=== PATIENT | female | born 1980 | race Caucasian/White ===

== ENCOUNTER 2019-05-28 13:33 | Inpatient (IN) | payer OTHER ==
[~2019-05-28] VITALS: Ht 154.9 cm; Wt 54.4 kg
[2019-05-28 13:42] VITALS: BP 128/69
[2019-05-28 14:00] LABS: URINE BILIRUBIN NEGATIVE (Negative); URINE BLOOD NEGATIVE (Negative); URINE CLARITY CLEAR; URINE COLOR YELLOW; URINE GLUCOSE-RANDOM NEGATIVE (Negative); URINE KETONES NEGATIVE (Negative); URINE LEUKOCYTES-REFLEX NEGATIVE (Negative); URINE NITRITE-REFLEX NEGATIVE (Negative); URINE PROTEIN NEGATIVE (Negative); URINE UROBILINOGEN 0.2 E.U./dl (0.2-1.0)
[2019-05-28 14:11] LABS: ABSOLUTE LYMPHOCYTES 2.2 thou/uL (0.8-5.3); ABSOLUTE MONOCYTES 0.5 thou/uL (0.0-1.2); ABSOLUTE NEUTROPHILS 5.8 thou/uL (1.6-8.1); BASOPHILS 0.4 %; EOSINOPHILS 0.1 %; HEMATOCRIT 38.8 % (37.0-47.0); HEMOGLOBIN 13.4 gm/dL (12.0-15.0); LYMPHOCYTES 25.3 %; MCH 30.8 pg (26.0-34.0); MCHC 34.5 g/dL (28.0-37.0); MCV 89.4 fL (80.0-100.0); MONOCYTES 6.3 %; MPV 7.3 fl. (7.2-11.1); NUCLEATED RBCS 0 /100WBC; PLATELET COUNT* 370 thou/uL (150-400); POLYS 67.9 %; RBC 4.34 mil/uL (4.20-5.00); RDW-CV 14.6 % (10.5-14.5); WBC 8.6 thou/uL (4.0-11.0)
[2019-05-28 14:19] LABS: ANION GAP 9 mmol/L (7-16); BUN 9 mg/dL (7-18); CALCIUM 8.3 mg/dL (8.5-10.1); CHLORIDE 106 mmol/L (98-107); CO2 24 mmol/L (21-32); CREATININE 0.6 mg/dL (0.6-1.3); GLUCOSE 104 mg/dL (70-99); POTASSIUM 3.7 mmol/L (3.5-5.1); SODIUM 139 mmol/L (136-145)
[2019-05-28 14:28] LABS: ALBUMIN 3.3 g/dL (3.4-5.0); ALKALINE PHOSPHATASE 67 U/L (46-116); LIPASE 1135 U/L (73-393); SGOT 9 U/L (15-37); SGPT 15 U/L (30-65); TOTAL BILIRUBIN 0.2 mg/dL (<0.1-1.0); TOTAL PROTEIN 6.7 g/dL (6.4-8.2); TROPONIN-I LEVEL <0.06 ng/mL (<0.06)
[2019-05-28 15:41] LABS: AMP/METHAMP Negative (Negative); BARBITURATES Negative (Negative); BENZODIAZEPINES Negative (Negative); COCAINE Negative (Negative); METHADONE Negative (Negative); OPIATES Negative (Negative); PCP Negative (Negative); THC Negative (Negative)
--- NOTE | 2019-05-28 16:55 | EKG ---
[place] [address] ELECTROCARDIOGRAM REPORT Name: IRASEMA BARTON Room: [address] [place] [address] ADM IN .R.#: [id number] Admission: 05/28/19 Attend Phys: Camilo Chris MD Discharge: Date of : 80 Report #: [id number] THIS REPORT FOR: //name// [facility] ED Test Date: 2019-05-28 Test Time: 14:06:49 Pat Name: IRASEMA BARTON Department: Room: [facility] Gender: F Aircrewman: MEGAN : 1980 Requested By: Cindi Onofre Order Number: [id number] MD: Akin Fowler Measurements Intervals [place] Rate: 67 P: 54 TN: 149 QRS: 71 QRSD: 87 T: 42 QT: 379 QTc: 400 Interpretive Statements Sinus rhythm No previous ECG available for comparison Electronically Signed On 05-28-2019 16:55:34 CDT by Akin Fowler [email or web address] <ELECTRONICALLY SIGNED> By: Akin Fowler MD, [facility] 05/28/19 1655 1406 1406 Akin Fowler MD, FACC /EPI
[2019-05-28 17:03] LABS: CALCIUM 8.4 mg/dL (8.5-10.1); CREATININE 0.6 mg/dL (0.6-1.3); MAGNESIUM 1.8 mg/dL (1.8-2.4); POTASSIUM 4.1 mmol/L (3.5-5.1)
[2019-05-28 17:14] VITALS: BP 125/68
[2019-05-28 17:53] VITALS: BP 128/64
--- NOTE | 2019-05-28 18:02 | NUR ---
ASSESSMENT COMPLETE. PT ADMITTED TO UNIT AT 1710. PT IS ALERT AND ORIENTED X4. PT GIVEN PRN PAIN MEDICATION FOR ABDOMINAL PAIN. PT IS NPO EXCEPT MEDS. PT HAS IV FLUIDS INFUSING. UP STANDBY ASSIST. PT IS RESTING WITH NO OTHER CONCERNS. SEE ASSESSMENT AND VITALS FOR OTHER DETAILS. CALL LIGHT WITHIN REACH, WILL CONTINUE PLAN OF CARE
[2019-05-28 20:45] VITALS: BP 122/70
--- NOTE | 2019-05-29 04:18 | NUR ---
ASSUMED CARE OF PT 05/28/19 APPROX 1930, PT A&OX4 THROUGHOUT SHIFT, ASSESSMENTS AND HOURLY ROUNDINGS COMPLETED, PAIN MEDS REQUESTED BY PT AND GIVEN ORDERED APPROX Q2HR, MAGNESIUM POTOCOL FOLLOWED AND MEDS GIVEN PER PROTOCOL. WILL CONTINUE TO MONITOR.
[2019-05-29 05:07] LABS: HEMATOCRIT 34.7 % (37.0-47.0); HEMOGLOBIN 11.9 gm/dL (12.0-15.0); MCH 31.2 pg (26.0-34.0); MCHC 34.4 g/dL (28.0-37.0); MCV 90.6 fL (80.0-100.0); MPV 7.7 fl. (7.2-11.1); RBC 3.83 mil/uL (4.20-5.00); RDW-CV 13.9 % (10.5-14.5); WBC 7.8 thou/uL (4.0-11.0)
[2019-05-29 05:29] LABS: ALBUMIN 2.7 g/dL (3.4-5.0); CREATININE 0.5 mg/dL (0.6-1.3); MAGNESIUM 1.6 mg/dL (1.8-2.4); POTASSIUM 4.1 mmol/L (3.5-5.1); TOTAL BILIRUBIN 0.3 mg/dL (<0.1-1.0); TOTAL PROTEIN 5.6 g/dL (6.4-8.2)
[2019-05-29 08:18] VITALS: BP 107/42
[2019-05-29 12:00] VITALS: BP 113/51
--- NOTE | 2019-05-29 13:03 | NUR ---
Nutrition: Pt admitted with "acute pancreatitis, possibly obstructive." Physician indicated Mild PCM - defer. Volume depletion. Wt: 119#. Lipase 1135, albumin 2.7. NPO currently. Pt was sound asleep at time of visit, wanting to remain sleeping. No nutrition interventions needed at this time. GOALS: advance diet as toelrated to goal of low fat, wt maintenance, pain control. Consider Mild risk at this time.
[2019-05-29 16:00] VITALS: BP 108/55
--- NOTE | 2019-05-29 18:56 | NUR ---
Patient awake in bed. All safety measures maintained. Patient ambulating up ad rikki throughout shift. Patient denies further needs at this time.
[2019-05-29 22:20] VITALS: BP 110/49
[2019-05-30 04:45] LABS: ALBUMIN 2.9 g/dL (3.4-5.0); CREATININE 0.6 mg/dL (0.6-1.3); MAGNESIUM 1.8 mg/dL (1.8-2.4); TOTAL BILIRUBIN 0.5 mg/dL (<0.1-1.0)
--- NOTE | 2019-05-30 05:42 | NUR ---
PT RESTING/SLEEPING QUIETLY THROUGH THIS SHIFT. PAIN MANAGED BY FENTANYL AND TORADOL. ELECTROLYE REPLACEMENT IN PROGRESS. NPO EXCEPT MEDS. IV FLUID RUNNING ORDERED. UP AD ALEC. WILL CONTINUE TO MONITOR.
[2019-05-30 08:15] VITALS: BP 112/59; BP 141/84
[2019-05-30 15:00] VITALS: BP 125/58
--- NOTE | 2019-05-30 19:17 | CON ---
[address] [address] CONSULTATION Name: IRASEMA BARTON Room: [address] IN .R.#: [id number] Admission: 05/28/19 Attend Phys: Camilo Chris MD Discharge: Date of : 80 Report #: [id number] THIS REPORT FOR: //name// CC: SANIYA physician/PCP Camilo Chris DATE OF SERVICE: 05/29/2019 HISTORY OF PRESENT ILLNESS: This is a pleasant 39-year-old female with no significant past medical history, who is presenting for evaluation of severe abdominal pain. The patient reports the pain began about 2 days back. The pain is sharp, located in the epigastrium, is localized and nonradiating. The patient reports it is associated with nausea, but no vomiting. The patient denies similar episodes of pain in the past. She denies any other symptoms such as fevers, chills, hematemesis, hematochezia or weight loss. The patient reports the pain is worse with food and is only relieved by pain medication. PAST MEDICAL HISTORY: Nonsignificant. PAST SURGICAL HISTORY: Nonsignificant. SOCIAL HISTORY: The patient reports smoking about half pack per day, takes alcohol very occasionally once every few months. Denies any recreational drug use. FAMILY HISTORY: There is no family history of colorectal cancer or [place]-related neoplasia. REVIEW OF SYSTEMS: A comprehensive 10-point review of systems is negative except what was mentioned in the HPI. PHYSICAL EXAMINATION: VITAL SIGNS: Temperature 36.7, pulse rate 62, blood pressure 107/42 and respirations 15. GENERAL: The patient is alert, awake and oriented x 3. HEENT: Pupils are equal, round and reactive to light and accommodation. Mucous membranes are moist. There is no congestion. LUNGS: Clear to auscultation bilaterally. CARDIOVASCULAR: Rate and rhythm regular, S1, S2 present. ABDOMEN: Soft. Tenderness is located in the epigastric region. No guarding or rigidity. EXTREMITIES: Warm, well perfused. There is no edema. SKIN: Warm and dry. LABORATORY DATA: Hemoglobin 11.7, hematocrit 34.7, platelet count 321 and WBC count 7.8. Sodium 143, potassium 4.1, chloride 110, bicarbonate 22, BUN 10, [place] [address] CONSULTATION Name: IRASEMA BARTON Room: [address]#: [id number] Admission: 05/28/19 Attend Phys: Camilo Chris MD Discharge: Date of : 80 Report #: [id number] creatinine 0.5, total bilirubin 0.3, AST 12, ALT 20 and alkaline phosphatase 67. Lipase on presentation 1135. IMAGING: CT of abdomen and pelvis with contrast, pancreatic mass 3.7 x 2.9 x 3.4 cm, located in the head of uncinate process, suspicious for pancreatic adenocarcinoma. No definite CT evidence of metastatic disease to the abdomen or pelvis; 2 right sacral indeterminate, nonaggressive bone lesions; bilateral ovarian cysts; prior hysterectomy; small volume of pelvic fluid within physiologic limits. ASSESSMENT AND PLAN: Pleasant 39-year-old female with no significant past medical history, presenting for evaluation of her abdominal pain. The patient was found to have elevated lipase consistent with mild acute pancreatitis. The patient also noted to have a lesion in the uncinate process of the pancreas. Continue conservative management for acute pancreatitis. I would recommend getting an EUS in 1-2 weeks to follow up on the pancreatic mass/lesion. Check CA 19-9 level tomorrow. Further recommendations will depend on the patient's clinical course. Thank you for this consultation. <ELECTRONICALLY SIGNED> By: Tony Gamboa MD 05/30/191916 40 51Tony Gamboa MD /nt
--- NOTE | 2019-05-30 19:31 | NUR ---
4638 GI PHYSICIAN CONTACTED REGARDING PATIENT'S DIET ADVANCEMENT REQUEST. NEW ORDER RECEIVED. 193 PATIENT AWAKE IN BED. ALL SAFETY MEASURES MAINTAINED. PATIENT TOLERATING DIET WELL.
[2019-05-30 22:48] VITALS: BP 134/67
[2019-05-31 03:54] LABS: ABSOLUTE BASOPHILS 0.1 thou/uL (0.0-0.2); ABSOLUTE LYMPHOCYTES 1.6 thou/uL (0.8-5.3); ABSOLUTE MONOCYTES 0.6 thou/uL (0.0-1.2); ABSOLUTE NEUTROPHILS 5.9 thou/uL (1.6-8.1); BASOPHILS 0.7 %; HEMATOCRIT 34.5 % (37.0-47.0); HEMOGLOBIN 11.9 gm/dL (12.0-15.0); LYMPHOCYTES 19.3 %; MCH 30.9 pg (26.0-34.0); MCHC 34.5 g/dL (28.0-37.0); MCV 89.7 fL (80.0-100.0); MONOCYTES 7.1 %; NUCLEATED RBCS 0 /100WBC; PLATELET COUNT* 325 thou/uL (150-400); POLYS 72.9 %; RBC 3.85 mil/uL (4.20-5.00); RDW-CV 13.7 % (10.5-14.5); WBC 8.1 thou/uL (4.0-11.0)
[2019-05-31 04:02] LABS: ALBUMIN 2.7 g/dL (3.4-5.0); CALCIUM 8.6 mg/dL (8.5-10.1); CREATININE 0.6 mg/dL (0.6-1.3); POTASSIUM 3.5 mmol/L (3.5-5.1); TOTAL BILIRUBIN 0.2 mg/dL (<0.1-1.0); TOTAL PROTEIN 5.5 g/dL (6.4-8.2)
--- NOTE | 2019-05-31 06:57 | NUR ---
PATIENT SLEPT WELL DURING THIS SHIFT. PT UP AD ALEC TO BATHROOM. PT WITH FLUIDS INFUSING PER DR ORDER. PT REQUESTED TYLENOL AND OXY IR 5MG PO Q4H FOR ABDOMINAL PAIN. PT RETURNBED TO SLEEP AFTERWARDS. FREQUENTLY USED ITEMS AND CALL LIGHT WITHIN REACH. SIDERAILS UPX2. WILL CONTINUE TO MONITOR.
[2019-05-31] MEDS ORDERED: OXYCODONE HCL 55 MG PO (10:00)
[2019-05-31 10:01] VITALS: BP 134/67
[2019-05-31 12:12] VITALS: BP 134/67
== END 2019-05-31 11:50 | disposition home or self-care (01) | DRG 439 ==
LOC: M.ERS 13:33 → M.3W 16:01 → M.TBA-ER 16:01 → M.3W 17:07
PROVIDERS: Internal Medicine; Nurse Practitioner Family; ADMIT Internal Medicine
DX: K85.90 Acute pancreatitis without necrosis or infection, unspecified (principal); E44.1 Mild protein-calorie malnutrition; F17.210 Nicotine dependence, cigarettes, uncomplicated; E86.9 Volume depletion, unspecified; D49.0 Neoplasm of unspecified behavior of digestive system; Z23 Encounter for immunization; Z90.710 Acquired absence of both cervix and uterus; Z88.1 Allergy status to other antibiotic agents; Z88.0 Allergy status to penicillin; Z88.2 Allergy status to sulfonamides; Z68.22 Body mass index [BMI] 22.0-22.9, adult; Z79.899 Other long term (current) drug therapy

== ENCOUNTER 2019-07-18 18:54 | Inpatient (IN) | payer OTHER ==
[~2019-07-18] VITALS: Ht 154.9 cm; Wt 50.3 kg
[~2019-07-18 18:54] MED LIST: OXYCODONE HCL15 MG PO
[2019-07-18 19:00] VITALS: BP 117/67
[2019-07-18] MEDS ORDERED: MORPHINE SULFAT15 M3 PO (19:08)
[2019-07-18] MEDS ORDERED: MS CONTIN60 MG PO (19:09)
[2019-07-18] MEDS ORDERED: NEURONTIN 300300 M1 PO (19:09)
[2019-07-18] MEDS ORDERED: ZOFRAN8 MG PO (19:10)
[2019-07-18 19:54] LABS: ABSOLUTE LYMPHOCYTES 1.1 thou/uL (0.8-5.3); ABSOLUTE MONOCYTES 0.2 thou/uL (0.0-1.2); ABSOLUTE NEUTROPHILS 2.7 thou/uL (1.6-8.1); BASOPHILS 1.1 %; EOSINOPHILS 0.4 %; HEMOGLOBIN 12.3 gm/dL (12.0-15.0); LYMPHOCYTES 26.1 %; MCHC 35.2 g/dL (28.0-37.0); MONOCYTES 5.7 %; NUCLEATED RBCS 0 /100WBC; PLATELET COUNT* 267 thou/uL (150-400); POLYS 66.7 %; RBC 3.98 mil/uL (4.20-5.00); RDW-CV 13.5 % (10.5-14.5); WBC 4.1 thou/uL (4.0-11.0)
[2019-07-18 20:02] LABS: CALCIUM 8.4 mg/dL (8.5-10.1); CREATININE 0.6 mg/dL (0.6-1.3); POTASSIUM 3.4 mmol/L (3.5-5.1)
[2019-07-18 20:07] LABS: TOTAL BILIRUBIN 0.8 mg/dL (<0.1-1.0); TOTAL PROTEIN 6.7 g/dL (6.4-8.2)
[2019-07-18 22:26] LABS: URINE BLOOD NEGATIVE (Negative); URINE CLARITY CLEAR; URINE COLOR YELLOW; URINE GLUCOSE-RANDOM NEGATIVE (Negative); URINE KETONES 1+ (Negative); URINE LEUKOCYTES-REFLEX NEGATIVE (Negative); URINE NITRITE-REFLEX NEGATIVE (Negative); URINE PROTEIN TRACE (Negative)
[2019-07-18 22:33] LABS: AMP/METHAMP Negative (Negative); BARBITURATES Negative (Negative); BENZODIAZEPINES Negative (Negative); COCAINE Negative (Negative); METHADONE Negative (Negative); OPIATES POSITIVE (Negative); PCP Negative (Negative); THC Negative (Negative)
[2019-07-18 22:34] LABS: URINE BILIRUBIN 1+ (Negative)
[2019-07-18 22:35] LABS: ICTOTEST (BILI CONFIRMATORY) Negative (Negative)
[2019-07-19 00:25] VITALS: BP 108/62
--- NOTE | 2019-07-19 04:12 | NUR ---
PT TO FLOOR APPROX 0040, ASSESSMENT COMPLETED CHARTED. SEE MAR. SEE CHARTING. HOURLY ROUNDING FOR SAFETY.
[2019-07-19 07:45] VITALS: BP 120/69
--- NOTE | 2019-07-19 18:49 | NUR ---
PATIENT RESTING IN BED. PATIENT HAS SLEPT MOST OF THE DAY. PATIENT HAD COMPAZINE X 1 FOR NAUSEA. PATIENT TOLERATING SMALL AMOUNTS OF CLEAR LIQUIDS. CALL LIGHT WITHIN REACH. WILL CONTINUE TO MONITOR
[2019-07-19 20:05] VITALS: BP 122/72
[2019-07-20 04:59] LABS: HEMATOCRIT 30.1 % (37.0-47.0); HEMOGLOBIN 10.4 gm/dL (12.0-15.0); MCH 30.7 pg (26.0-34.0); MCHC 34.4 g/dL (28.0-37.0); MCV 89.1 fL (80.0-100.0); MPV 8.9 fl. (7.2-11.1); RBC 3.38 mil/uL (4.20-5.00); RDW-CV 13.2 % (10.5-14.5); WBC 4.5 thou/uL (4.0-11.0)
[2019-07-20 05:10] LABS: CALCIUM 7.7 mg/dL (8.5-10.1); CREATININE 0.5 mg/dL (0.6-1.3); POTASSIUM 3.1 mmol/L (3.5-5.1)
--- NOTE | 2019-07-20 05:32 | NUR ---
PT SLEPT WELL OVERNIGHT. CO NAUSEA, MEDS GIVEN X2, NO EMESIS NOTED. UP AD ALEC TO BR TO VOID. RCHEST PAC IVF INFUSING PER PUMP. PO PAIN MEDS GIVEN WITH GOOD RELIEF FOR ABD PAIN. TOLERATING CLEARS WITHOUT EMESIS. AM LABS DRAWN. SENNA GIVEN AT HS ORDERED. NO REPORTS OF BM THIS SHIFT.ABLE TO USE CALL LITE AND MAKE NEEDS KNOWN.
[2019-07-20 08:15] VITALS: BP 122/75
[2019-07-20 16:30] VITALS: BP 125/72
--- NOTE | 2019-07-20 18:04 | NUR ---
PT A&OX4 VSS. PT UP AD ALEC, GAIT STEADY. NS @ 100ML RUNNING TO PORT IN R CHEST. LINR FLUSHES AND DRAWS APPROPRIATELY. PT DIET ADVANCED TO SOFT FIBER PER PHYSICIAN. PT REPORTS DECREASED APPETITE, BUT REQUESTS APPLE JUICE THROUGHOUT SHIFT. NO C/O N/V. LAB RE-DRAW ORDERED TO F/U K+ ADMINISTRATION. C/O HEARTBURN THIS AFTERNOON, PO FAMOTIDINE ORDERED PER DR PAYAN. PT RESTS IN BED W/ LIGHT OFF FOR REST/COMFORT. CALL LIGHT IN REACH. WILL CONTINUE TO MONITOR.
[2019-07-20 19:03] LABS: CALCIUM 7.3 mg/dL (8.5-10.1); CREATININE 0.5 mg/dL (0.6-1.3); POTASSIUM 3.4 mmol/L (3.5-5.1)
[2019-07-20 20:00] VITALS: BP 115/54
[2019-07-21 07:30] VITALS: BP 124/57
[2019-07-21] MEDS ORDERED: PEPCID20 MG PO (16:37)
[2019-07-21] MEDS ORDERED: COMPAZINE5 M1 PO (16:37)
[2019-07-21] MEDS ORDERED: ZOFRAN8 MG PO (16:37)
[2019-07-21 17:11] VITALS: BP 124/57
--- NOTE | 2019-07-21 17:50 | NUR ---
PT PORT HEPARIN LOCKED PER PROTOCOL AND DEACCESSED AT THIS TIME. PT AGREEABLE TO DISCHARGE AT THIS TIME. PT TOLERATING DIET AND HAS REDUCED N/V AND PAIN IS BETTER MANAGED, BUT IT IS CONTROLLED WITH ORAL PAIN MEDICATIONS AND ORAL ANTI-EMETICS. PT HAS NO CONCERNS NOTED AT TIME OF DISCHARGE AND STATES SHE HAS A FOLLOW UP WITH DR HICKEY THIS WEEK. WILL CONTINUE TO MONITOR AND ASSESS
== END 2019-07-21 18:45 | disposition home or self-care (01) | DRG 392 ==
LOC: M.ERS 18:54 → M.TBA-ER 22:14 → M.ERS 22:14 → M.TBA-ER 22:35 → M.ORTHSURG 22:35 → M.TBA-ER 07-19 00:04 → M.ORTHSURG 07-19 00:48
PROVIDERS: Emergency Medicine; Family Medicine; ADMIT Internal Medicine
DX: R11.2 Nausea with vomiting, unspecified (principal); C25.9 Malignant neoplasm of pancreas, unspecified; E44.0 Moderate protein-calorie malnutrition; T45.1X5A Adverse effect of antineoplastic and immunosuppressive drugs, initial encounter; E86.0 Dehydration; E87.6 Hypokalemia; Y92.89 Other specified places as the place of occurrence of the external cause; Z90.710 Acquired absence of both cervix and uterus; Z88.1 Allergy status to other antibiotic agents; Z88.0 Allergy status to penicillin; Z88.2 Allergy status to sulfonamides; Z88.8 Allergy status to other drugs, medicaments and biological substances; Z79.899 Other long term (current) drug therapy

== ENCOUNTER 2019-08-07 13:29 | Inpatient (IN) | payer OTHER ==
[~2019-08-07] VITALS: Ht 154.9 cm; Wt 50.5 kg
[~2019-08-07 13:29] MED LIST changes: +COMPAZINE5 M1 PO; +MORPHINE SULFAT15 M3 PO; +MS CONTIN60 MG PO; +NEURONTIN 300300 M1 PO; +PEPCID20 MG PO; +ZOFRAN8 MG PO
[2019-08-07 14:00] VITALS: BP 118/79
[2019-08-07 15:57] LABS: CALCIUM 8.7 mg/dL (8.5-10.1); CREATININE 0.6 mg/dL (0.6-1.3)
[2019-08-07 16:01] LABS: ALBUMIN 2.8 g/dL (3.4-5.0); TOTAL BILIRUBIN 0.4 mg/dL (<0.1-1.0); TOTAL PROTEIN 6.3 g/dL (6.4-8.2)
[2019-08-07 16:14] LABS: URINE BILIRUBIN 1+ (Negative); URINE BLOOD NEGATIVE (Negative); URINE CLARITY CLEAR; URINE COLOR YELLOW; URINE GLUCOSE-RANDOM NEGATIVE (Negative); URINE KETONES NEGATIVE (Negative); URINE LEUKOCYTES-REFLEX NEGATIVE (Negative); URINE NITRITE-REFLEX NEGATIVE (Negative); URINE PROTEIN TRACE (Negative); URINE SPECIFIC GRAVITY 1.025 (1.005-1.030); URINE UROBILINOGEN 0.2 E.U./dl (0.2-1.0)
[2019-08-07 16:15] LABS: ICTOTEST (BILI CONFIRMATORY) Negative (Negative)
[2019-08-07 16:22] LABS: AMP/METHAMP Negative (Negative); BARBITURATES Negative (Negative); BENZODIAZEPINES Negative (Negative); COCAINE Negative (Negative); METHADONE Negative (Negative); OPIATES POSITIVE (Negative); PCP Negative (Negative); THC Negative (Negative)
[2019-08-07 16:47] VITALS: BP 109/68
[2019-08-07 16:49] LABS: ABSOLUTE LYMPHOCYTES 1.3 thou/uL (0.8-5.3); ABSOLUTE MONOCYTES 0.6 thou/uL (0.0-1.2); ABSOLUTE NEUTROPHILS 2.7 thou/uL (1.6-8.1); BASOPHILS 0.4 %; HEMATOCRIT 32.6 % (37.0-47.0); HEMOGLOBIN 11.5 gm/dL (12.0-15.0); LYMPHOCYTES 28.2 %; MCH 31.2 pg (26.0-34.0); MCHC 35.3 g/dL (28.0-37.0); MCV 88.4 fL (80.0-100.0); MONOCYTES 12.1 %; MPV 8.1 fl. (7.2-11.1); NUCLEATED RBCS 0 /100WBC; PLATELET COUNT* 227 thou/uL (150-400); POLYS 59.3 %; RBC 3.69 mil/uL (4.20-5.00); RDW-CV 13.7 % (10.5-14.5); WBC 4.6 thou/uL (4.0-11.0)
--- NOTE | 2019-08-07 17:49 | NUR ---
PT ARRIVED DIRECT ADMIT FROM DOCTORS OFFICE.PT IS A/O X4,VSS,SHAMPOOER IN PLACE.PT MADE NPO STATUS FOR STAT CT OF ABD.PT STARTED ON COVERING AND LINING SUPERVISOR PUMP PER ORDERS TO MANAGE PAIN.N/V MANAGED WITH IV MEDICATIONS.UA SENT.PT INFORMED OF PLAN OF CARE AND COMMUNICATES UNDERSTANDING.HOURLY ROUNDING COMPLETED FOR PT SAFETY.CALL LIGHT AND FALL PRECAUTIONS IN PLACE.FAMILY AT BEDSIDE.WILL CONTINUE TO MONITOR FOR DURATION OF SHIFT.
[2019-08-07 20:00] VITALS: BP 120/88
[2019-08-08] VITALS: BP 121/79
[2019-08-08 04:00] VITALS: BP 115/79
--- NOTE | 2019-08-08 05:53 | NUR ---
PATIENT SLEPT PART OF THE NIGHT. IV FLUIDS CONTINUE TO INFUSE ORDERED. IV POTASSIUM AND MAG WERE REPLACED PER PROTOCOL. PATIENT HAS HAD SEVERAL LIQUID LOOSE STOOLS THIS SHIFT. PATIENT CONTINUES TO HAVE NAUSEA AND VOMITING. NAUSEA MEDS WERE GIVEN TWICE. PATIENT HAS A FENTANYL SENIOR ANALYST DEVELOPER PUMP. WILL CONTINUE TO MONITOR.
[2019-08-08 06:10] LABS: ABSOLUTE MONOCYTES 0.7 thou/uL (0.0-1.2); ABSOLUTE NEUTROPHILS 4.7 thou/uL (1.6-8.1); BASOPHILS 0.2 %; HEMATOCRIT 33.3 % (37.0-47.0); HEMOGLOBIN 11.7 gm/dL (12.0-15.0); LYMPHOCYTES 16.4 %; MCH 30.8 pg (26.0-34.0); MCHC 35.1 g/dL (28.0-37.0); MCV 87.8 fL (80.0-100.0); MONOCYTES 10.2 %; MPV 7.4 fl. (7.2-11.1); NUCLEATED RBCS 0 /100WBC; PLATELET COUNT* 261 thou/uL (150-400); POLYS 73.2 %; RBC 3.79 mil/uL (4.20-5.00); RDW-CV 13.6 % (10.5-14.5); WBC 6.4 thou/uL (4.0-11.0)
[2019-08-08 07:41] VITALS: BP 103/47
--- NOTE | 2019-08-08 08:25 | NUR ---
ASSUMED CARE OF PT THIS AM AROUND 0715- MALT SPECIFICATIONS CONTROL ASSISTANT IN PLACE ORDERED, TRACING SR/SB- UPON ASSESSMENT PT NOTED TO BE RESTING IN BED- PT A&O X4- CONTINENT VS INCONTINENT OF B/B- SBA WITH TRANSFERS FOR SAFETY- LCTA, DIMINISHED IN BASES, RESP EVEN AND UN-LABORED- VSS, O2 SAT 99% ON RA- ABD SOFT/FLAT/NON-TENDER, BS X4 QUADS- PT NOTED TO BE HAVING DIARRHEA THIS AM, SOME INCONTINENT EPISODES- RIGT CHEST PORT NOTED INTACT, IVF INFUSSING PRESCIBED- COTA PUMP IN PLACE DIRECTED, NO USE NOTED THIS AM PER PT- NPO STATUS IN PLACE INDICATED- PT DENIES ANY C/O PAIN- CALL LIGHT AND PERSONAL BELONGINGS WITH IN REACH- PT MAKES NEEDS KNOWN- ALL NEEDS MET AT THIS TIME-TATIANA
[2019-08-08 09:57] LABS: ALBUMIN 3.1 g/dL (3.4-5.0); CALCIUM 9.2 mg/dL (8.5-10.1); CREATININE 0.6 mg/dL (0.6-1.3); MAGNESIUM 2.5 mg/dL (1.8-2.4); TOTAL BILIRUBIN 0.3 mg/dL (<0.1-1.0); TOTAL PROTEIN 6.6 g/dL (6.4-8.2)
[2019-08-08 10:16] LABS: POTASSIUM 2.8 mmol/L (3.5-5.1)
[2019-08-08 10:41] VITALS: BP 102/47
--- NOTE | 2019-08-08 14:46 | 2DMMODE ---
[place] [address] 2 D/M-MODE ECHOCARDIOGRAM Name: IRASEMA BARTON Room: [address] IN [facility]#: [id number] Admission: 08/07/19 Attend Phys: Rory Dias MD Discharge: Date of : 80 Date of Service: 08/08/19 1445 Report #: [id number] THIS REPORT FOR: //name// APPROVED REPORT Study performed: 08/08/2019 10:39:59 EXAM: Comprehensive 2D, Doppler, and color-flow Echocardiogram Patient Location: In-Patient Room #: [facility] Status: routine BSA: 1.43 HR: 50 bpm BP: 103/47 mmHg Rhythm: NSR Other Information Study Quality: Good Indications Bradycardia 2D Dimensions IVSd: 8.59 (7-11mm) LVOT Diam: 20.27 (18-24mm) LVDd: 41.44 mm PWd: 8.68 (7-11mm) LVDs: 20.88 (25-40mm) Aortic Root: 29.64 mm Volumes Left Atrial Volume (Systole) LA ESV Index: 23.70 mL/m2 Aortic Valve AoV Peak Gage.: 1.31 m/s AO Peak Gr.: 6.84 mmHg LVOT Max P.47 mmHg AO Mean Gr.: 3.59 mmHg LVOT Mean P.92 mmHg LVOT Max V: 1.06 m/s AO V2 VTI: 23.52 cm LVOT Mean V: 0.63 m/s ALVIN (VTI): 2.83 cm2 LVOT V1 VTI: 20.61 cm Mitral Valve E/A Ratio: 1.77 MV Decel. Time: 310.79 ms MV E Max Gage.: 0.67 m/[place] [address] 2 D/M-MODE ECHOCARDIOGRAM Name: IRASEMA BARTON Room: [address] IN [facility].#: [id number] Admission: 08/07/19 Attend Phys: Rory Dias MD Discharge: Date of : 80 Date of Service: 08/08/19 1445 Report #: [id number] MV PHT: 90.13 ms MVA (PHT): 2.44 cm2 TDI E/Lateral E': 4.19 E/Medial E': 4.79 Medial E' Gage.: 0.14 m/s Lateral E' Gage.: 0.16 m/s Pulmonary Valve PV Peak Gage.: 0.89 m/s PV Peak Gr.: 3.18 mmHg Left Ventricle The left ventricle is normal size. There is normal LV segmental wall motion. There is normal left ventricular wall thickness. Left ventricular systolic function is normal. The left ventricular ejection fraction is within the normal range. LVEF is 60-65%. The left ventricular diastolic function is normal. Right Ventricle The right ventricle is normal size. The right ventricular systolic function is normal. Atria The left atrium size is normal. The right atrium size is normal. Aortic Valve The aortic valve is normal in structure. No aortic regurgitation is present. There is no aortic valvular stenosis. Mitral Valve The mitral valve is normal in structure. There is no mitral valve regurgitation noted. No evidence of mitral valve stenosis. Tricuspid Valve The tricuspid valve is normal in structure. Unable to assess PA pressure. Trace tricuspid regurgitation. Pulmonic Valve The pulmonary valve is normal in structure. There is no pulmonic valvular regurgitation. Great Vessels The aortic root is normal in size. IVC is normal in size and collapses >50% [place] [address] 2 D/M-MODE ECHOCARDIOGRAM Name: IRASEMA BARTON Room: [address] IN [facility]#: [id number] Admission: 08/07/19 Attend Phys: Rory Dias MD Discharge: Date of : 80 Date of Service: 08/08/19 1445 Report #: [id number] Pericardium There is no pericardial effusion. <Conclusion> The left ventricle is normal size. There is normal left ventricular wall thickness. Left ventricular systolic function is normal. The left ventricular ejection fraction is within the normal range. LVEF is 60-65%. The left ventricular diastolic function is normal. The right ventricle is normal size. The left atrium size is normal. The aortic valve is normal in structure. The mitral valve is normal in structure. The tricuspid valve is normal in structure. IVC is normal in size and collapses >50% with inspiration. There is no pericardial effusion. There is normal LV segmental wall motion. <ELECTRONICALLY SIGNED> By: Walter Ibrahim MD, [facility] 08/08/19 1445 1445 1445 Walter Ibrahim MD, FACC /INF
--- NOTE | 2019-08-08 14:49 | NUR ---
Pt is A&O. Resides at home with her . Independent. Very nauseous with vomitting today. On palliative chemo for pancreatic CA. Following.
[2019-08-08 16:23] VITALS: BP 109/53
[2019-08-08 20:00] VITALS: BP 104/54
[2019-08-09] VITALS: BP 100/51
--- NOTE | 2019-08-09 03:25 | NUR ---
ASSUMED PT CARE AT APPROX 1930. PT IS AWAKE AND ORIENTED X4. VSS ON ROOM AIR. SHIPBOARD INTELLIGENCE ANALYST IN PLACE TRACING SB-PT REMAINED ASYMPTOMATIC. PT IS STILL NAUSEOUS-MEDS GIVEN PER MAR WITH PARTIAL RELIEF. PT IS ABLE TO SLEEP MOST OF THE NIGHT, NO DIARRHEIC EPISODES THIS SHIFT. POTASSIUM REPLACEMENT IN PROGRESS. FALL PRECAUTIONS IN PLACE. CALL LIGHT WITHIN REACH. HOURLY ROUNDING DONE FOR PT SAFETY.
[2019-08-09 04:00] VITALS: BP 116/57
[2019-08-09 04:36] LABS: HEMATOCRIT 31.3 % (37.0-47.0); HEMOGLOBIN 10.7 gm/dL (12.0-15.0); MCH 30.7 pg (26.0-34.0); MCHC 34.3 g/dL (28.0-37.0); MCV 89.7 fL (80.0-100.0); MPV 7.5 fl. (7.2-11.1); RBC 3.49 mil/uL (4.20-5.00); RDW-CV 13.3 % (10.5-14.5); WBC 8.4 thou/uL (4.0-11.0)
[2019-08-09 04:52] LABS: ALBUMIN 2.9 g/dL (3.4-5.0); CALCIUM 8.1 mg/dL (8.5-10.1); CREATININE 0.6 mg/dL (0.6-1.3); MAGNESIUM 2.4 mg/dL (1.8-2.4); POTASSIUM 3.2 mmol/L (3.5-5.1); TOTAL BILIRUBIN 0.3 mg/dL (<0.1-1.0); TOTAL PROTEIN 5.9 g/dL (6.4-8.2)
[2019-08-09 08:00] VITALS: BP 125/72
--- NOTE | 2019-08-09 08:45 | CON ---
[address] [address] CONSULTATION Name: IRASEMA BARTON Room: [address] IN M.R.#: [id number] Admission: 08/07/19 Attend Phys: Rory Dias MD Discharge: Date of : 80 Report #: [id number] THIS REPORT FOR: //name// CC: SANIYA physician/PCP Rory Dias CARDIOLOGY CONSULT INDICATIONS: Sinus bradycardia. HISTORY OF PRESENT ILLNESS: The patient is a 39-year-old white female who has metastatic pancreatic cancer for which she is receiving palliative care. She was admitted to the hospital with abdominal pain, nausea, vomiting, and diarrhea. She reports inadequate pain control at home. Since being hospitalized, she has continued to have significant discomfort as well as nausea. On telemetry monitoring, the patient was noted to be in sinus rhythm and sinus bradycardia. Hemodynamically, she remained stable. Heart rates have been above 50 consistently. She has no prior cardiac history or issues. There is no significant family history of heart problems with the exception of bradycardia. PAST MEDICAL HISTORY: 1. Metastatic pancreatic cancer. 2. Hysterectomy for uterine fibroids. 3. Port placement for chemotherapy treatment. FAMILY HISTORY: Noncontributory. SOCIAL HISTORY: The patient smokes tobacco daily approximately half a pack. She does not drink alcohol. CURRENT MEDICATIONS: MS Contin 15 mg p.o. b.i.d., Reglan 5 mg every 6 hours IV p.r.n., morphine sulfate 4 mg IV every 2 hours p.r.n., scopolamine patch every 72 hours, Lovenox 40 mg subcutaneously at bedtime, and nicotine patch 7 mg daily. PHYSICAL EXAMINATION: VITAL SIGNS: Stable, blood pressure 102/47, pulse 50 and regular. GENERAL: This is a thin, pleasant young lady who does not appear to be in distress. HEENT: Head is normocephalic and atraumatic. Extraocular muscles intact. Mucous membranes moist. Dentition poor. NECK: No jugular venous distention. There are no carotid bruits. CHEST: Reveals clear lung natarajan. CARDIOVASCULAR: Reveals a bradycardic rate with a regular rhythm. There is normal S1 and S2. I do not appreciate gallop or murmur. ABDOMEN: Reveals normal bowel sounds. The abdomen [place] [address] CONSULTATION Name: IRASEMA BARTON Room: [address] IN [facility].#: [id number] Admission: 08/07/19 Attend Phys: Rory Dias MD Discharge: Date of : 80 Report #: [id number] EXTREMITIES: Shows no edema. SKIN: Dry. IMPRESSION AND RECOMMENDATIONS: 1. Bradycardia, possibly being contributed to slightly by some of her medications including Reglan and MS Contin. I would not make any adjustments to her medications at this time as she is tolerating this bradycardia without significant hemodynamic compromise. We would follow clinically. 2. Metastatic pancreatic cancer, on palliative care. 3. Intractable nausea and vomiting. Continue Reglan and Zofran as needed. The patient also reported reasonable relief at home with Compazine, which I have ordered for use on an as needed basis. 4. Chronic tobacco abuse. The patient is presently on a nicotine patch. From a cardiac standpoint, the patient appears stable. I would not adjust medications based on her mild bradycardia and will follow as needed. <ELECTRONICALLY SIGNED> By: Akin Fowler MD, FACC 08/09/19 0845 1512 [id number] Fowler MD, FACC /nt
[2019-08-09 11:11] VITALS: BP 120/68
[2019-08-09 15:21] VITALS: BP 113/70
[2019-08-09 20:00] VITALS: BP 120/71
--- NOTE | 2019-08-09 20:01 | NUR ---
PT VSS, PT SB ON TELE, A&OX4, PT STAND BY ASSIST DUE TO GENERALIZED WEAKNESS. PATIENT HAS PORTACATH RIGHT CHEST- BLOOD RETURN. PATIENT REPORTING NAUSEA ALL DAY WITH CLEAR EMESIS AROUND 1800. HOURLY ROUNDING PERFORMED. POSSESSIONS AND CALL LIGHT WITHIN REACH.
[2019-08-10] VITALS: BP 118/61
[2019-08-10 04:00] VITALS: BP 106/58
[2019-08-10 04:53] LABS: HEMATOCRIT 32.5 % (37.0-47.0); HEMOGLOBIN 11.1 gm/dL (12.0-15.0); MCH 30.9 pg (26.0-34.0); MCHC 34.2 g/dL (28.0-37.0); MCV 90.3 fL (80.0-100.0); MPV 7.6 fl. (7.2-11.1); RBC 3.59 mil/uL (4.20-5.00); RDW-CV 13.5 % (10.5-14.5)
[2019-08-10 05:17] LABS: ALBUMIN 2.6 g/dL (3.4-5.0); CALCIUM 8.3 mg/dL (8.5-10.1); CREATININE 0.6 mg/dL (0.6-1.3); MAGNESIUM 2.1 mg/dL (1.8-2.4); TOTAL BILIRUBIN 0.3 mg/dL (<0.1-1.0); TOTAL PROTEIN 5.6 g/dL (6.4-8.2)
[2019-08-10 05:18] LABS: POTASSIUM 4.2 mmol/L (3.5-5.1)
[2019-08-10 08:00] VITALS: BP 120/70
[2019-08-10 11:18] VITALS: BP 127/65
[2019-08-10 15:01] VITALS: BP 123/64
--- NOTE | 2019-08-10 20:03 | NUR ---
PT VSS, SB ON TELE, CHANGED TO MED SURG STATUS. A&OX4, HOURLY ROUNDING PERFORMED, POSSESSIONS AND CALL LIGHT WITHIN REACH. FAMILY AT BEDSIDE
[2019-08-10 21:42] VITALS: BP 120/71
[2019-08-11] VITALS: BP 151/76
[2019-08-11 08:00] VITALS: BP 140/80
--- NOTE | 2019-08-11 16:03 | NUR ---
PT VSS, A&OX4, MED SURG STATUS, PT EXPERIENCING NAUSEA, RIGHT CHEST PORT- BLOOD RETURN, HOURLY ROUNDING PERFORMED, POSSESSIONS AND CALL LIGHT WITHIN REACH, FAMILY AT BEDSIDE. TRANSFERRED PATIENT TO ROOM 113, REPORT GIVEN TO LIONEL NOLAND.
--- NOTE | 2019-08-11 17:36 | NUR ---
ASSUMED CARE OF PATIENT RESTING QUIETLY PPN RESTARTED NAUSEA CONTROLLED WITH ANTIEMETICS.
[2019-08-11 19:15] VITALS: BP 106/46
[2019-08-12 04:47] LABS: ABSOLUTE LYMPHOCYTES 2.6 thou/uL (0.8-5.3); ABSOLUTE MONOCYTES 0.5 thou/uL (0.0-1.2); ABSOLUTE NEUTROPHILS 2.2 thou/uL (1.6-8.1); BASOPHILS 0.5 %; EOSINOPHILS 0.5 %; HEMATOCRIT 37.9 % (37.0-47.0); LYMPHOCYTES 48.4 %; MCH 31.3 pg (26.0-34.0); MCHC 34.7 g/dL (28.0-37.0); MONOCYTES 8.9 %; MPV 7.2 fl. (7.2-11.1); NUCLEATED RBCS 0 /100WBC; PLATELET COUNT* 297 thou/uL (150-400); POLYS 41.7 %; RBC 4.21 mil/uL (4.20-5.00); RDW-CV 13.8 % (10.5-14.5); WBC 5.4 thou/uL (4.0-11.0)
[2019-08-12 04:51] LABS: HEMOGLOBIN 13.2 gm/dL (12.0-15.0)
[2019-08-12 05:17] LABS: ALBUMIN 2.9 g/dL (3.4-5.0); CALCIUM 8.6 mg/dL (8.5-10.1); CREATININE 0.6 mg/dL (0.6-1.3); POTASSIUM 4.1 mmol/L (3.5-5.1); TOTAL BILIRUBIN 0.4 mg/dL (<0.1-1.0)
[2019-08-12 07:45] VITALS: BP 111/76
[2019-08-12] MEDS ORDERED: ZOFRAN4 MG PO (09:24)
[2019-08-12] MEDS ORDERED: TRANSDERM-SCOP1 EACH TRANSDERM (09:25)
[2019-08-12] MEDS ORDERED: OLANZAPINE5 M1 PO (09:28)
[2019-08-12] MEDS ORDERED: CIPRO250 M2 PO (09:28)
[2019-08-12] MEDS ORDERED: FLAGYL500 M1 PO (09:29)
[2019-08-12 09:32] VITALS: BP 111/76
--- NOTE | 2019-08-12 12:10 | NUR ---
PATIENT DISCHARGED TO HOME. DISCHARGE PAPERS REVIEWED AND SIGNED. PRESCRIPTIONS AND INFORMATION SHEETS GIVEN. PORT-A-CATH PACKED WITH HEPARIN AND DEACCESSED. PATIENT EDUCATED ON BLAND DIET. PATIENT DENIES ANY FURTHER NEEDS. PATIENT TAKEN BY WHEELCHAIR TO EXIT. LEFT WITH FAMILY.
--- NOTE | 2019-08-12 18:14 | CON ---
[address] [address] CONSULTATION Name: IRASEMA BARTON Room: [address] IN .#: [id number] Admission: 08/07/19 Attend Phys: Rory Dias MD Discharge: 08/12/19 Date of : 80 Report #: [id number] THIS REPORT FOR: //name// CC: SANIYA physician/PCP Rory Dias DATE OF SERVICE: 08/10/2019 HISTORY OF PRESENT ILLNESS: This is a pleasant 39-year-old female with recently diagnosed pancreatic adenocarcinoma, status post biliary stenting, was presenting for evaluation. The patient received chemotherapy and began experiencing episodes of nausea and vomiting. The symptoms were there for the last one week. She reports 3-4 episodes of emesis, mostly food and fluids that she consumes. She denies any hematemesis, coffee-ground emesis, hematochezia or melena. The patient denies any significant pruritus. The patient does report having 3-4 episodes of diarrhea since her hospitalization. She had not had this while she was at home. PAST MEDICAL HISTORY: Pancreatic adenocarcinoma. PAST SURGICAL HISTORY: None. SOCIAL HISTORY: The patient denies smoking, alcohol or recreational drug use. FAMILY HISTORY: No family history of pancreatic adenocarcinoma or colon cancer. REVIEW OF SYSTEMS: Negative except for what was mentioned in the HPI. PHYSICAL EXAMINATION: VITAL SIGNS: Temperature 36.5, blood pressure 127/65, pulse rate 52. GENERAL: The patient is alert, awake, oriented x 3. HEENT: Pupils are equal, round, reactive to light and accommodation. Mucous membranes are moist. There is no congestion. LUNGS: Clear to auscultation bilaterally. CARDIOVASCULAR: Rate and rhythm regular, S1 and S2 present. ABDOMEN: Soft. There is no distention, guarding or rigidity. EXTREMITIES: Warm, well perfused. There is no edema. SKIN: Warm and dry. LABORATORY DATA: Hemoglobin 11.1, hematocrit 32.5, platelet count 275, WBC count 8.0. Sodium 140, potassium 4.2, chloride 109, bicarbonate 25, BUN 15, creatinine 0.6, total bilirubin 0.3, AST 34, ALT 80, alkaline phosphatase 97. IMAGING: Abdomen and pelvis CT, this demonstrates known large pancreatic mass with pancreatic stent in place with pneumobilia on [place] [address] CONSULTATION Name: IRASEMA BARTON Room: [address] IN [facility]#: [id number] Admission: 08/07/19 Attend Phys: Rory Dias MD Discharge: 08/12/19 Date of : 80 Report #: [id number] were to evaluate and contrast study from 08/07/2019, hyperdense area in the right kidney, likely representing hemorrhagic cyst, continued inflammatory change and thick walled appearance of the right and transverse colon consistent with colitis, similar to the previous study. ASSESSMENT AND PLAN: Pleasant 39-year-old female presenting with nausea, vomiting and diarrhea. Nausea and vomiting are currently well controlled. I would recommend checking her stool for C. difficile and GI path and if that is negative, we will proceed with colonoscopy. <ELECTRONICALLY SIGNED> By: Tony Gamboa MD 08/12/19 1814 1400 [id number] Gamboa MD /nt
== END 2019-08-12 12:10 | disposition home or self-care (01) | DRG 435 ==
LOC: M.2W 13:29 → M.ORTHSURG 08-11 15:25
PROVIDERS: Internal Medicine; ADMIT Family Medicine
DX: C25.9 Malignant neoplasm of pancreas, unspecified (principal); E43 Unspecified severe protein-calorie malnutrition; F11.20 Opioid dependence, uncomplicated; E86.0 Dehydration; R00.1 Bradycardia, unspecified; E87.6 Hypokalemia; E83.42 Hypomagnesemia; Z51.5 Encounter for palliative care; F17.210 Nicotine dependence, cigarettes, uncomplicated; K52.9 Noninfective gastroenteritis and colitis, unspecified; R11.2 Nausea with vomiting, unspecified; Z68.21 Body mass index [BMI] 21.0-21.9, adult; Z90.710 Acquired absence of both cervix and uterus; Z79.899 Other long term (current) drug therapy; Z88.1 Allergy status to other antibiotic agents; Z88.0 Allergy status to penicillin; Z88.2 Allergy status to sulfonamides; Z88.8 Allergy status to other drugs, medicaments and biological substances; Z92.21 Personal history of antineoplastic chemotherapy; T45.1X5A Adverse effect of antineoplastic and immunosuppressive drugs, initial encounter; Y92.89 Other specified places as the place of occurrence of the external cause

== ENCOUNTER 2019-08-25 05:16 | Inpatient (IN) | payer OTHER ==
[~2019-08-25] VITALS: Ht 157.5 cm; Wt 44.9 kg
[~2019-08-25 05:16] MED LIST changes: +CIPRO250 M2 PO; +FLAGYL500 M1 PO; +OLANZAPINE5 M1 PO; +TRANSDERM-SCOP1 EACH TRANSDERM; +ZOFRAN4 MG PO
[2019-08-25 06:18] LABS: CALCIUM 8.7 mg/dL (8.5-10.1); CREATININE 0.8 mg/dL (0.6-1.3); POTASSIUM 3.8 mmol/L (3.5-5.1)
[2019-08-25 06:22] LABS: ALBUMIN 3.1 g/dL (3.4-5.0); HEMATOCRIT 41.1 % (37.0-47.0); HEMOGLOBIN 14.2 gm/dL (12.0-15.0); MCH 31.4 pg (26.0-34.0); MCHC 34.5 g/dL (28.0-37.0); MCV 91.2 fL (80.0-100.0); NUCLEATED RBCS 0 /100WBC; PLATELET COUNT* 265 thou/uL (150-400); RDW-CV 16.4 % (10.5-14.5); TOTAL BILIRUBIN 0.5 mg/dL (<0.1-1.0); TOTAL PROTEIN 6.9 g/dL (6.4-8.2); WBC 23.7 thou/uL (4.0-11.0)
[2019-08-25 06:54] LABS: ABSOLUTE LYMPHOCYTES 1.9 thou/uL (0.8-5.3); ABSOLUTE MONOCYTES 1.2 thou/uL (0.0-1.2); ABSOLUTE NEUTROPHILS 20.6 thou/uL (1.6-8.1); METAMYELOCYTES 1 %
[2019-08-25 06:56] LABS: MICROCYTES 1+; PLATELET ESTIMATE ADEQUATE; TARGET CELLS Occasional; TOXIC GRANULATION 3+
--- NOTE | 2019-08-25 10:10 | EKG ---
[place] [address] ELECTROCARDIOGRAM REPORT Name: MICKIRASEMA SARAY Room: [place] [address] ADM IN [facility].#: [id number] Admission: 08/25/19 Attend Phys: Camilo Chris MD Discharge: Date of : 80 Report #: [id number] THIS REPORT FOR: //name// [facility] ED Test Date: 2019-08-25 Test Time: 05:40:56 Pat Name: IRASEMA BARTON Department: Room: [facility] Gender: F Draft Roller Picker: [place] : 1980 Requested By: Theo Mcgovern Order Number: [id number] MD: Rajesh Amato Measurements Intervals [place] Rate: 93 P: 84 CO: 125 QRS: 69 QRSD: 77 T: 56 QT: 339 QTc: 422 Interpretive Statements Sinus rhythm nonspecific t wave changes Consider left ventricular hypertrophy Compared to ECG 05/28/2019 14:06:49 No significant changes Electronically Signed On 08-25-2019 10:10:03 WELDING MACHINE TENDER by Rajesh Amato [email or web address] <ELECTRONICALLY SIGNED> By: Rajesh Amato MD, [facility] 08/25/19 1010 9 Rajesh Amato MD, [facility] /EPI
[2019-08-25 11:26] LABS: URINE BILIRUBIN NEGATIVE (Negative); URINE BLOOD NEGATIVE (Negative); URINE CLARITY CLEAR; URINE COLOR YELLOW; URINE GLUCOSE-RANDOM NEGATIVE (Negative); URINE KETONES NEGATIVE (Negative); URINE LEUKOCYTES-REFLEX NEGATIVE (Negative); URINE NITRITE-REFLEX NEGATIVE (Negative); URINE PROTEIN NEGATIVE (Negative); URINE SPECIFIC GRAVITY 1.015 (1.005-1.030); URINE UROBILINOGEN 0.2 E.U./dl (0.2-1.0)
[2019-08-25 13:09] VITALS: BP 134/92
[2019-08-25 15:12] VITALS: BP 135/95
--- NOTE | 2019-08-25 18:41 | NUR ---
PT ARRIVED TO ROOM 107 AT APPROX 1330 FROM ER, PT DROWSY, C/O PAIN, NAUSEA, MEDS GIVEN PER MAR. ADMISSION DONE CHARTED. PTS PRESENT, PT CALLS APPROPRIALTY FOR NEEDS. WILL CONTINUE TO MONITOR.
[2019-08-25 20:25] VITALS: BP 127/95
--- NOTE | 2019-08-26 07:48 | NUR ---
Pt experienced multiple episodes of nausea w/ emesis at least 3 times overnight. Pt appeared to rest well following dose of lorazepam. Pt c/o dry mouth, and "feeling bad." Pt appears drowsy, flat affect. VSS. Will continue to monitor.
[2019-08-26 08:00] VITALS: BP 133/98
[2019-08-26 08:23] LABS: HEMATOCRIT 36.2 % (37.0-47.0); HEMOGLOBIN 12.5 gm/dL (12.0-15.0); MCH 31.4 pg (26.0-34.0); MCHC 34.5 g/dL (28.0-37.0); MCV 91.1 fL (80.0-100.0); MPV 7.5 fl. (7.2-11.1); RBC 3.98 mil/uL (4.20-5.00); RDW-CV 16.5 % (10.5-14.5)
[2019-08-26 08:24] LABS: WBC 7.8 thou/uL (4.0-11.0)
[2019-08-26 09:38] LABS: ALBUMIN 2.8 g/dL (3.4-5.0); CALCIUM 8.1 mg/dL (8.5-10.1); CREATININE 0.7 mg/dL (0.6-1.3); POTASSIUM 3.6 mmol/L (3.5-5.1); TOTAL BILIRUBIN 0.5 mg/dL (<0.1-1.0); TOTAL PROTEIN 6.3 g/dL (6.4-8.2)
--- NOTE | 2019-08-26 12:06 | NUR ---
Nutrition: Pt admitted with N/V, pancreatic cancer, SBO. Pt refusing NGT. No BM or flatus yet. NPO. Alb 2.8, prealb 23.7. Seen for low BMI. Per [facility], pt weighed 119# in May 2019, and 109# yday. Today's wt is 99# - please reweigh for accuracy. Questioning today's wt. Will f/u tomorrow on wt, POC, 08/27/19.
[2019-08-26 17:11] VITALS: BP 126/102
--- NOTE | 2019-08-26 18:38 | NUR ---
PATIENT REMIANS IN CONSTANT PAIN AND NAUSEA. GIVEN MEDICATION EVERY 4 HOURS. FAMILY AT BEDSIDE. PT HAD MEDIUM BM SEMI FORMED FROM ENEMA.
[2019-08-26 21:20] VITALS: BP 124/77
[2019-08-27 02:06] LABS: GLYCOHEMOGLOBIN (HGB A1C) 6.2 % (4.8-5.6)
--- NOTE | 2019-08-27 06:54 | NUR ---
PATIENT HAS BEEN RESTLESS DURING THE NIGHT. PATIENT HAS HAD C/O OF PAIN AND NAUSEA AND HAS VOMITED MULTIPLE TIMES DURING THE NIGHT. PATIENT EDUCATED ON THE NEED FOR NG TUBE PLACEMENT BUT PATIENT STILL REFUSING TO HAVE NG PLACED. PAIN MEDICATION AND NAUSEA MEDICATIONS GIVEN PER ORDER. NOTIFIED OF PATIENT HAVING NAUSEA AND VOMITING. PATIENT HAS REMAINED NPO DURING THE NIGHT. ASSESSMENT CHARTED. PATIENTS MOTHER AT BEDSIDE. PATIENT DID HAVE 2 MODERATED SIZED BOWEL MOVEMENTS AND HAS BEEN BURPING AND BELCHING ALOT. RIGHT ZOILA CATH-NS @ 100ML/HR. PATIENT IS UP WITH SBA TO THE BSC BUT VERY WEAK. PATIENT INSTRUCTED TO USE CALL LIGHT WHEN NEEDING ASSISTANCE. WILL CONTINUE WITH PLAN OF CARE AND NURSING TO MONITOR.
--- NOTE | 2019-08-27 07:21 | NUR ---
PATIENT HAS SLEPT WELL THROUGHOUT MOST OF THE NIGHT. VSS ON 1L 02 VIA NASAL CANNULA, ALTHOUGH TEMP 99.5 AND PULSE TACHY. MEDICATIONS GIVEN ORDERED AND CHARTED. RIGHT UPPER ARM PICC-SL. IV ABT GIVEN WITHOUT ANY ADVERSE SIDE EFFECTS NOTED. DRESSING TO LEFT FOOT IS C/D/I WITH WOUND VAC IN PLACE TO SUCTION. PATIENT IS UP WITH SBA TO THE BSC AND DOES WELL. PATIENT INSTRUCTED TO USE CALL LIGHT WHEN NEEDING ASSISTANCE. HOURLY ROUNDS MADE. WILL CONTINUE WITH PLAN OF CARE AND NURSING TO MONITOR.
[2019-08-27 07:59] VITALS: BP 125/76
--- NOTE | 2019-08-27 17:02 | NUR ---
cm completed assessment. pt was not alert or communicative. pt's spouse, Akhil and her parents, Letty and Michael were at bedside. pt lives at home w/spouse. pt's parents are very supportive. pt has no dmes. nor does pt have hx w/hh or snf. pt is on service w/palliative care for pancreatic chemo.cm to cont to follow.
--- NOTE | 2019-08-27 18:17 | NUR ---
PT A&Ox4, DROWSY. PORT PATENT. PAIN CONTROLLED WITH MORPHINE. NAUSEA CONTROLLED WITH PHENERGAN AND ZOFRAN. UP WITH STAND BY ASSSIST. NG TUBE PLACED, 500ML OUT DURING SHIFT. IN ROOM. CALL LIGHT WITHIN REACH. WILL CONTINUE TO MONITOR.
[2019-08-27 20:30] VITALS: BP 128/84
[2019-08-28 05:54] LABS: HEMATOCRIT 31.7 % (37.0-47.0); HEMOGLOBIN 10.9 gm/dL (12.0-15.0); MCH 31.9 pg (26.0-34.0); MCHC 34.6 g/dL (28.0-37.0); MCV 92.1 fL (80.0-100.0); RBC 3.44 mil/uL (4.20-5.00); RDW-CV 16.7 % (10.5-14.5); WBC 6.1 thou/uL (4.0-11.0)
[2019-08-28 06:01] LABS: CALCIUM 8.2 mg/dL (8.5-10.1); CREATININE 0.6 mg/dL (0.6-1.3); POTASSIUM 3.1 mmol/L (3.5-5.1)
--- NOTE | 2019-08-28 06:57 | NUR ---
PATIENT HAS SLEPT OFF AND ON DURING THE NIGHT, BUT VERY RESTLESS AT TIMES. VSS ON RA, ALTHOUGH PATIENT DID HAVE LOW GRADE TEMP EARLY IN THE NIGHT OF 100.4 BUT TEMP IS NOW 98.2. MEDICATION GIVEN ORDERED AND CHARTED. NG TUBE TO LOW INTERMITTENT SUCTION IN RIGHT NARE WITH BROWN OUTPUT. PATIENT REMAINS NPO. RIGHT CHEST PORT-NS @ 100ML/HR. PATIENT DID HAVE SMALL BM. MOTHER AT BEDSIDE. PATIENT INSTRUCTED TO USE CALL LIGHT WHEN NEEDING ASSISTANCE. HOURLY ROUNDS MADE. WILL CONTINUE WITH PLAN OF CARE AND NURSING TO MONITOR.
[2019-08-28 08:00] VITALS: BP 122/64
[2019-08-28 16:00] VITALS: BP 116/60
--- NOTE | 2019-08-28 16:46 | NUR ---
RECEIVED REPORT FROM PARK SERVICES SPECIALIST AND ASSUMED CARE OF PT.PT IS A/O X4,VSS.PT C/O PAIN IN ABDOMEN WITH IV MEDICATIONS GIVEN.PT STATES THAT PAIN MEDICATION ISNT WORKING-DOCTOR DISCUSSED WITH PT THAT THE MEDICATIONS ARE ORDERED APPROPRIATELY AND THE COMPLICATIONS THAT PAIN MEDICATIONS CAN HAVE ON THE BOWELS.PT COMMUNICATED UNSERSTANDING.IVF INFUSING PER ORDERS.PT REMAINS NPO-SURGERY OKAYED PT TO HAVE ONE ORANGE SHAVED ICE AND SMALL AMOUNT OF ICE CHIPS THROUGHTOUT THE SHIFT.PT FAMILY CAUGHT GIVING THE PT DRINKS AND ICE CHIPS ON A COUPLE OF OCCASIONS THEN PT C/O MORE PAIN -PT AND FAMILY REEDUCATED ON THE NPO STATUS AND HOW DRINKING COULD BE CAUSING HER TO HAVE THIS PAIN.NG SECURE AND PATENT @ 70 WITH LIS- WITH COPIUS AMOUNTS OF OUTPUT. HOURLY ROUNDING COMPLETED FOR PT SAFETY.CALL LIGHT AND FALL PRECAUTIONS IN PLACE.WILL CONTINUE TO MONITOR FOR DURATION OF SHIFT.
[2019-08-28 19:30] VITALS: BP 116/65
--- NOTE | 2019-08-28 21:01 | NUR ---
INITAL ASSESMENT COMPLETED AT 1930. PT REPORTED PAIN AT THAT TIME. PT GIVEN PRN MORPHINE AT THAT TIME. PT'S LIGHTS TURNED OFF AND DOOR KEPT CLOSED PER REQUEST. PT'S MOTHER AT BEDSIDE ASSISTING WITH CARE. CALL LIGHT IN REACH, PT DEMONSTRATES PROPER USE.
[2019-08-29 05:02] LABS: HEMATOCRIT 33.3 % (37.0-47.0); HEMOGLOBIN 11.2 gm/dL (12.0-15.0); MCH 31.3 pg (26.0-34.0); MCHC 33.7 g/dL (28.0-37.0); MCV 92.8 fL (80.0-100.0); MPV 7.6 fl. (7.2-11.1); NUCLEATED RBCS 0 /100WBC; PLATELET COUNT* 239 thou/uL (150-400); RBC 3.59 mil/uL (4.20-5.00); RDW-CV 16.6 % (10.5-14.5); WBC 5.6 thou/uL (4.0-11.0)
[2019-08-29 05:19] LABS: CALCIUM 8.6 mg/dL (8.5-10.1); CREATININE 0.7 mg/dL (0.6-1.3); MAGNESIUM 2.1 mg/dL (1.8-2.4); PHOSPHORUS* 2.9 mg/dL (2.5-4.9); POTASSIUM 3.6 mmol/L (3.5-5.1)
--- NOTE | 2019-08-29 05:24 | NUR ---
PT RECIEVING IV MORPHINE FOR PAIN Q 3 HRS PRN. PT CALLS TWO HOURS AFTER DOSE GIVEN REPORTING SEVERE PAIN. PT'S ABDOMEN DISTENDED, NG TUBE FLUSHED AND CHECKED FOR PATENCY. LONG TUBING OBTAINED AND SUCTION CANISTER PLACED ON FLOOR. 1800 ML THICK GREEN BILE OBTAINED VIA NG TUBE DURING SHIFT. VITAL SIGNS WITHIN NORMAL LIMITS, NO ACUTE CHANGES DURING SHIFT.
[2019-08-29 06:13] LABS: ABSOLUTE LYMPHOCYTES 1.3 thou/uL (0.8-5.3); ABSOLUTE MONOCYTES 1.3 thou/uL (0.0-1.2); MYELOCYTES 2 %; PLATELET ESTIMATE ADEQUATE
[2019-08-29 06:14] LABS: ANISOCYTOSIS 1+; POIKILOCYTOSIS 1+; TOXIC GRANULATION 1+
[2019-08-29 08:15] VITALS: BP 142/100
[2019-08-29 16:00] VITALS: BP 126/87
--- NOTE | 2019-08-29 17:40 | NUR ---
PATIENT NOT PROGRESSING WELL TOWARDS GOALS. PAIN WAS NOT ABLE TO REALLY BE CONTROLLED THIS SHIFT DESPITE MULTIPLE CHANGES IN FREQUENCY AND DOSAGE OF PAIN MEDICATION. NAUSEATED THROUGHOUT MOST OF SHIFT. ZOFRAN AND PHENERGAN GIVEN THROUGHOUT SHIFT, SEE EMAR. XRAY ABDOMINAL SERIES DONE TODAY, NG TO LIS AFTER SERIES COMPLETED. DR BARCENAS UPDATED, WILL UPDATE FAMILY IN THE AM WITH RESULTS. FAMILY AWARE. FLUIDS INFUSING. CALL LIGHT IN REACH.
[2019-08-29 19:50] VITALS: BP 140/92
[2019-08-30 03:57] LABS: HEMATOCRIT 31.8 % (37.0-47.0); HEMOGLOBIN 10.8 gm/dL (12.0-15.0); MCH 31.7 pg (26.0-34.0); MCV 93.3 fL (80.0-100.0); MPV 7.8 fl. (7.2-11.1); RBC 3.4 mil/uL (4.20-5.00); RDW-CV 17.7 % (10.5-14.5); WBC 6.7 thou/uL (4.0-11.0)
[2019-08-30 04:14] LABS: CALCIUM 8.5 mg/dL (8.5-10.1); CREATININE 0.6 mg/dL (0.6-1.3); MAGNESIUM 2.3 mg/dL (1.8-2.4); POTASSIUM 3.7 mmol/L (3.5-5.1)
--- NOTE | 2019-08-30 07:31 | NUR ---
PT STATED SHE HAS BEEN DRINKING WATER, INFORMED HER THAT SHE SHOULD NOT DRINK WATER. ASSESSMENT COMPLETED CHARTED. SEE MAR. FALL PRECAUTIONS IN PLACE. VSS. PROGRESSING TOWARDS GOALS. HOURLY ROUNDING FOR SAFETY.
[2019-08-30 08:00] VITALS: BP 130/91
[2019-08-30 16:44] VITALS: BP 126/97
--- NOTE | 2019-08-30 17:13 | NUR ---
ASSUMMED CARE OF PT AT 0730, PT ALERT AND ORIENTED, QUIET, FLAT AFFECT, PT COMPLAINS OF ABDOMINAL PAIN, MEDICATED PER ORDER FOR PAIN, NG TUBE PATENT TO LOW INTERMITTENT SUCTION WITH OVER 2000 CC OUT OF CLEAR/YELLOW/BROWN RETURNS OUT, FAMILY GIVING PT SIPS OF WATER AND ICE CHIPS, PT AND FAMILY INFORMED THEY SHOULD NOT BE GIVING TO PT, DID INFORM SURGEON ON ROUNDS, ORDER FOR MOUTH SPRAY OBTAINED, PT TO HAVE MRI THIS PM AND FAMILY INSTRUCTED THAT PT COULD NOT HAVE ANY WATER ESPECIALLY PRIOR TO MRI SCAN, FAMILY DOES NOT SEEM TO UNDERSTAND AND WANT TO HELP PT FEEL BETTER BY LETTING HER DRINK WATER, IV PATENT IN RIGHT CHEST PORTACATH, SUPP GIVEN THIS AM WITH SMALL AMOUNT OF BROWN LIQUID STOOL OUT, PT C/O NAUSEA AND MEDICATED PER ORDER, NO EMESIS THIS SHIFT, FAMILY WITH PT ALL SHIFT, VSS, ASSESSMENT COMPLETE, HOURLY ROUNDING COMPLETE, WILL CONTINUE TO MONITOR.
[2019-08-30 20:00] VITALS: BP 132/91
[2019-08-31 04:15] LABS: HEMATOCRIT 30.5 % (37.0-47.0); HEMOGLOBIN 10.5 gm/dL (12.0-15.0); MCH 31.7 pg (26.0-34.0); MCHC 34.2 g/dL (28.0-37.0); MCV 92.7 fL (80.0-100.0); MPV 8.5 fl. (7.2-11.1); RBC 3.3 mil/uL (4.20-5.00); RDW-CV 17.4 % (10.5-14.5); WBC 6.1 thou/uL (4.0-11.0)
[2019-08-31 04:39] LABS: ALBUMIN 2.3 g/dL (3.4-5.0); CALCIUM 7.8 mg/dL (8.5-10.1); CREATININE 0.5 mg/dL (0.6-1.3); MAGNESIUM 1.8 mg/dL (1.8-2.4); PHOSPHORUS* 2.1 mg/dL (2.5-4.9); TOTAL BILIRUBIN 0.4 mg/dL (<0.1-1.0); TOTAL PROTEIN 5.6 g/dL (6.4-8.2)
[2019-08-31 04:44] LABS: POTASSIUM 2.9 mmol/L (3.5-5.1)
--- NOTE | 2019-08-31 07:57 | NUR ---
Oriented x 4 but slightly drowsy this shift. Vitals are stable. Mom at bedside and she stated that this is the first night she has slept. She had morphine x 4 this shift. She has a rt chest portacath and it has good blood return and flushes well. Potassium was critical and called to Dr Anguiano and orders recieved. Patient has slept well.
[2019-08-31 09:23] VITALS: BP 112/77
--- NOTE | 2019-08-31 15:43 | NUR ---
PT SOMEWHAT PROGRESSING TOWARDS GOALS THIS SHIFT. PT HAS HAD TWO LOOSE STOOLS . NO C/O N/V. NG CONTINUES TO HAVE OUTPUT W/ LIS. POTASSIUM BEING REPLACED PER PROTOCOL TODAY. PT SLEEPING MOST THIS SHIFT. NO PAIN MEDICATION REQUESTED TODAY. PT'S MOTHER AT BEDSIDE. NO OTHER CONCERNS AT THIS TIME. CLWR. WCTM.
[2019-08-31 16:00] VITALS: BP 110/78
[2019-08-31 19:52] VITALS: BP 118/81
--- NOTE | 2019-09-01 05:44 | NUR ---
ASSUMED CARE OF PT 08/31/19, PT A&OX4, PT ON ROOM AIR, NG IN PLACE TO LIS, VSS, PAIN MEDS REQUESTED AND GIVEN ORDERED, HOURLY ROUNDINGS AND ASSESSMENTS COMPLETED, WILL CONTINUE TO MONITOR.
[2019-09-01 06:09] LABS: ABSOLUTE LYMPHOCYTES 1.6 thou/uL (0.8-5.3); ABSOLUTE MONOCYTES 0.6 thou/uL (0.0-1.2); ABSOLUTE NEUTROPHILS 3.9 thou/uL (1.6-8.1); BASOPHILS 0.2 %; EOSINOPHILS 0.1 %; HEMATOCRIT 29.4 % (37.0-47.0); HEMOGLOBIN 10.1 gm/dL (12.0-15.0); LYMPHOCYTES 26.5 %; MCH 31.7 pg (26.0-34.0); MCHC 34.5 g/dL (28.0-37.0); MCV 92.1 fL (80.0-100.0); MONOCYTES 9.9 %; MPV 8.2 fl. (7.2-11.1); NUCLEATED RBCS 0 /100WBC; PLATELET COUNT* 212 thou/uL (150-400); POLYS 63.3 %; RBC 3.19 mil/uL (4.20-5.00); RDW-CV 16.9 % (10.5-14.5); WBC 6.2 thou/uL (4.0-11.0)
[2019-09-01 06:18] LABS: CALCIUM 7.5 mg/dL (8.5-10.1); CREATININE 0.5 mg/dL (0.6-1.3); DIRECT BILIRUBIN 0.1 mg/dL (<0.1-0.3); MAGNESIUM 1.5 mg/dL (1.8-2.4); PHOSPHORUS* 1.8 mg/dL (2.5-4.9); POTASSIUM 3.2 mmol/L (3.5-5.1); TOTAL BILIRUBIN 0.3 mg/dL (<0.1-1.0); TOTAL PROTEIN 4.9 g/dL (6.4-8.2)
[2019-09-01 08:36] VITALS: BP 119/86
--- NOTE | 2019-09-01 15:39 | NUR ---
PT PROGRESSING TOWARDS GOALS THIS SHIFT. NG TUBE CLAMPED EARLIER THIS AM. PT GIVEN CLEAR LIQUID DIET WITH ENSURE CLEARS. PT TOLERATING AT THIS TIME. ONE DOSE OF ZOFRAN ADMINISTERED AT TIME OF NG TUBE CLAMPING WITH ADMINISTRATION OF PAIN MEDICATIONS. PT ENCOURAGED TO SIT UP ON SIDE OF BED. PT'S FAMILY AT BEDSIDE. IVF INFUSING. PRN IV MORPHINE EFFECTIVE WITH PAIN MANAGEMENT. NO OTHER CONCERNS AT THIS TIME. CLWR. WCTM.
[2019-09-01 16:00] VITALS: BP 127/92
[2019-09-01 19:20] VITALS: BP 130/92
--- NOTE | 2019-09-01 22:20 | NUR ---
INITAL ASSESMENT COMPLETED. PT HAVING SEVERE PAIN. PT GIVEN PRN MORPHINE, ATIVAN, ZOFRAN AND BENADRYL. PT RECIEVED GOOD RELIEF. VITAL SIGNS WITHIN NORMAL LIMITS, CALL LIGHT IN REACH, PT USING APPROPRIATELY.
[2019-09-02 00:22] VITALS: BP 118/78
[2019-09-02 04:27] LABS: HEMATOCRIT 34.6 % (37.0-47.0); HEMOGLOBIN 11.9 gm/dL (12.0-15.0); MCH 31.6 pg (26.0-34.0); MCHC 34.5 g/dL (28.0-37.0); MCV 91.5 fL (80.0-100.0); MPV 7.9 fl. (7.2-11.1); RBC 3.78 mil/uL (4.20-5.00); RDW-CV 16.8 % (10.5-14.5); WBC 5.9 thou/uL (4.0-11.0)
[2019-09-02 04:50] LABS: ALBUMIN 2.4 g/dL (3.4-5.0); CALCIUM 7.7 mg/dL (8.5-10.1); CREATININE 0.6 mg/dL (0.6-1.3); MAGNESIUM 1.8 mg/dL (1.8-2.4); PHOSPHORUS* 1.9 mg/dL (2.5-4.9); POTASSIUM 3.4 mmol/L (3.5-5.1); TOTAL BILIRUBIN 0.4 mg/dL (<0.1-1.0); TOTAL PROTEIN 5.9 g/dL (6.4-8.2)
--- NOTE | 2019-09-02 06:32 | NUR ---
PT INCONTINENT OF EXTREMELY LARGE LIQUID BOWEL MOVEMENTAT 0520. NG CLAMPED SINCE YESTERDAY DURING DAYSHIFT. VITAL SIGNS WITHIN NORMAL LIMITS. PT RESPONDING WELL TO IV PAIN MEDS WHEN GIVEN WITH IV BENADRYL, ATIVAN AND ZOFRAN AT THE SAME TIME.
--- NOTE | 2019-09-02 08:06 | NUR ---
ASSUMED CARE OF PT 09/01/19 AT APPROX 1915, PT A&OX4, VSS, CARE OF PT TRANSFERED PER PT REQUEST TO LIONEL ARROYO APPROX 2130.
[2019-09-02 10:15] VITALS: BP 107/78
--- NOTE | 2019-09-02 15:43 | NUR ---
PT.GENERALLY FEELING SOME BETTER. XRAY STILL SHOWS SBO. IN AND SPOKE AT LENGTH WITH PT.AND FAMILY. ANSWERED THEIR QUESTIONS. CM WILL CONTINUE TO FOLLOW.
[2019-09-02 16:00] VITALS: BP 122/83
--- NOTE | 2019-09-02 19:00 | NUR ---
PATIENT PLEASANT AND COOPERATIVE. MOM PRESENT THRU SHIFT TO ASST W/ PATIENT CARES. CENTRAL LINE DRSG CHANGE DONE USING ASEPTIC TECHNIQUE, CATH TIP CHANGED. +BLOOD RETURN. FLUIDS INFUSING W/O DIFF. SEE MAR. NG TUBE BRITTANIE TO BE CLAMPED. PATIENT ATTEMPTING TO EAT, SUPPER TIME ATE 1/2 CUP OF CHX BROTH, CYPRIOT ICE AND ENSURE SIPS. PATIENT BECOME UNCOMFORTABLE IN HER ABDOMEN. PATIENT ENC TO TAKE A FEW SIPS EACH HOUR AND NOT TO TRY TO EAT A BUNCH AT ONCE, ENC TO TRY THIS EVENING AND SEE HOW SHE FEELS. PATIENT AGREEABLE. HRLY ROUNDS DONE. CALL LIGHT IN REACH. ~TJRN
[2019-09-02 19:15] VITALS: BP 116/54
[2019-09-03 04:45] LABS: ABSOLUTE LYMPHOCYTES 1.4 thou/uL (0.8-5.3); ABSOLUTE MONOCYTES 0.9 thou/uL (0.0-1.2); ABSOLUTE NEUTROPHILS 3.9 thou/uL (1.6-8.1); BASOPHILS 0.3 %; EOSINOPHILS 0.1 %; HEMATOCRIT 33.2 % (37.0-47.0); HEMOGLOBIN 11.5 gm/dL (12.0-15.0); LYMPHOCYTES 22.3 %; MCH 31.6 pg (26.0-34.0); MCHC 34.6 g/dL (28.0-37.0); MCV 91.2 fL (80.0-100.0); MONOCYTES 14.9 %; MPV 7.9 fl. (7.2-11.1); NUCLEATED RBCS 0 /100WBC; PLATELET COUNT* 239 thou/uL (150-400); POLYS 62.4 %; RBC 3.64 mil/uL (4.20-5.00); RDW-CV 16.6 % (10.5-14.5); WBC 6.2 thou/uL (4.0-11.0)
[2019-09-03 04:51] LABS: ALBUMIN 2.2 g/dL (3.4-5.0); CALCIUM 7.5 mg/dL (8.5-10.1); CREATININE 0.5 mg/dL (0.6-1.3); POTASSIUM 3.5 mmol/L (3.5-5.1); TOTAL BILIRUBIN 0.4 mg/dL (<0.1-1.0); TOTAL PROTEIN 5.5 g/dL (6.4-8.2)
--- NOTE | 2019-09-03 06:37 | NUR ---
BOWEL MOVEMENT X3 DURING DUPLICATOR PUNCH SET UP OPERATOR.
[2019-09-03 07:25] VITALS: BP 119/81
[2019-09-03 16:00] VITALS: BP 122/86
--- NOTE | 2019-09-03 17:31 | NUR ---
PT REMAINED ALERT AND ORIENTED AND DROWSY AT TIMES. NG TUBE REMOVED. PT TOLERATING CLEAR LIQUID. LOOSE BMS TODAY AND LAST NIGHT. PAIN MEDS GIVEN ORDERED. FALL RISK PRECAUTIONS IN PLACE. HOURLY ROUNDING COMPLETED. WILL CONTINUE TO MONITOR.
[2019-09-03 19:30] VITALS: BP 124/90
--- NOTE | 2019-09-03 22:28 | NUR ---
INITAL ASSESMENT COMPLETED AT 1930. PT REPORTING PAIN AT THAT TIME. PT GIVEN PRN MEDS PER REQUEST. PT RESTING QUIETLY SINCE THAT TIME. CALL LIGHT IN REACH, PT'S MOTHER AT BEDSIDE ASSISTING WITH CARE.
[2019-09-04 04:46] LABS: HEMATOCRIT 36.2 % (37.0-47.0); HEMOGLOBIN 12.5 gm/dL (12.0-15.0); MCH 31.6 pg (26.0-34.0); MCHC 34.7 g/dL (28.0-37.0); MCV 91.1 fL (80.0-100.0); MPV 8.4 fl. (7.2-11.1); NUCLEATED RBCS 0 /100WBC; PLATELET COUNT* 302 thou/uL (150-400); RBC 3.97 mil/uL (4.20-5.00); RDW-CV 16.6 % (10.5-14.5)
[2019-09-04 05:02] LABS: CALCIUM 8.4 mg/dL (8.5-10.1); CREATININE 0.6 mg/dL (0.6-1.3); MAGNESIUM 1.7 mg/dL (1.8-2.4); PHOSPHORUS* 3.4 mg/dL (2.5-4.9); POTASSIUM 4.1 mmol/L (3.5-5.1)
[2019-09-04 05:59] LABS: ABSOLUTE LYMPHOCYTES 2.6 thou/uL (0.8-5.3); ABSOLUTE MONOCYTES 1.4 thou/uL (0.0-1.2); ABSOLUTE NEUTROPHILS 4.1 thou/uL (1.6-8.1); ANISOCYTOSIS 1+; PLATELET ESTIMATE ADEQUATE; POIKILOCYTOSIS 1+; TOXIC GRANULATION 1+
[2019-09-04 08:00] VITALS: BP 126/84
--- NOTE | 2019-09-04 08:35 | NUR ---
7904 ASSUMED CARE OF PATIENT. PLEASE SEE DOCUMENTED ASSESSMENT. PT IS SOMNALENT. MOTHER PRESENT.
--- NOTE | 2019-09-04 13:30 | NUR ---
MET WITH MOTHER KAREN IN ROOM. PT SLEEPING,MINIMALLY RESPONSIVE. MOTHER TEARFUL AND STATES SHE KNOWS PT IS DYING AND DOES NOT WANT HER TO SUFFER. SHE IS CONCERNED PT'S PAIN IS NOT BEING ADEQUATELY TREATED BY SOME STAFF. PT IS A FULL CODE. PALLIATIVE CARE VISITED WITH FAMILY EARLIER THIS WEEK. FAMILY DOES NOT WANT UNDERCOLLAR MAKER PT IS NOT JUDAISM
--- NOTE | 2019-09-04 16:36 | NUR ---
HOSPICE DISCUSSED WITH DR MATUTE AND FAMILY. FAMILY STATES THEY WOULD PREFER A HOSPICE HOUSE. CM TO FOLLOW IN AM AND ARRANGE HOSPICE VISIT AND HOSPICE HOUSE VISIT TOMORROW
--- NOTE | 2019-09-04 17:16 | NUR ---
GOALS HAVE CHANGED FOR THIS PATIENT. PT IS NOW DNR. PAIN CONTROLLED WITH FENTANY PATCH AND PRN MEDS. CAN TAKE SIPS OF LIQUIDS. MULTIPLE STOOLS TODAY. S[POUSE AND MOTHER PRESENT AND HAVE SPOKEN WITH PHYSICIAN. PLAN IS FOR FAMILY TO SPEAK WITH HOSPICE TOMORROW.
[2019-09-04 20:45] VITALS: BP 117/77
[2019-09-05 08:00] VITALS: BP 107/72
[2019-09-05 08:18] LABS: MCH 31.8 pg (26.0-34.0); MCHC 34.7 g/dL (28.0-37.0); MCV 91.6 fL (80.0-100.0); MPV 7.6 fl. (7.2-11.1); RBC 3.06 mil/uL (4.20-5.00); RDW-CV 17.3 % (10.5-14.5); WBC 6.4 thou/uL (4.0-11.0)
[2019-09-05 08:20] LABS: HEMOGLOBIN 9.7 gm/dL (12.0-15.0)
[2019-09-05 08:29] LABS: CALCIUM 7.6 mg/dL (8.5-10.1); CREATININE 0.5 mg/dL (0.6-1.3); MAGNESIUM 1.8 mg/dL (1.8-2.4); PHOSPHORUS* 3.5 mg/dL (2.5-4.9); POTASSIUM 3.4 mmol/L (3.5-5.1)
--- NOTE | 2019-09-05 09:36 | NUR ---
PATIENT HAS SLEPT WELL THROUGHOUT MOST OF THE NIGHT. VSS ON RA. PAIN WELL CONTROLLED WITH IV PAIN MEDICATION AND CHARTED. ASSESSMENT CHARTED. MOTHER AT BEDSIDE. RIGHT ZOILA CATH-NS @ 75ML/HR. PATIENT HAS LARGE BOWEL MOVEMENT DURING THE NIGHT AND MARCOS CARE PERFORMED. PATIENT AND FAMILY INSTRUCTED TO USE CALL LIGHT WHEN NEEDING ASSISTANCE. HOURLY ROUNDS MADE. WILL CONTINUE WITH PLAN OF CARE AND NURSING TO MONITOR.
[2019-09-05 16:00] VITALS: BP 118/81
--- NOTE | 2019-09-05 16:24 | NUR ---
PATIENT ALERT AND ORIENTED TO PERSON, PLACE, AND SITUATION. FORGETFUL AT TIMES. VITAL SIGNS STABLE ON ROOM AIR. UP WITH ASSISTANCE OF ONE TO THE BEDSIDE COMODE. RIGHT CHEST PORT PATENT WITH FLUIDS INFUSING. PAIN BEING MANAGED WITH PO AND IV MEDICATIONS. DENIES NAUSEA AT THIS TIME. TOLERATING SMALL BITES OF FOOD. FALL PRECAUTIONS IN PLACE AND BED ALARM ON. HOURLY ROUNDS MAINTAINED THROUGHOUT THE SHIFT. CALL LIGHT WITHIN REACH. NURSING WILL CONTINUE TO MONITOR.
--- NOTE | 2019-09-05 17:17 | NUR ---
PT.MORE RESPONSIVE AND ALERT TODAY. DISCUSSED WITH . CM SPOKE WITH MOTHER BUT SHE DID NOT KNOW WHAT PALLIATIVE CARE PT.WAS WITH. CM CALLED [facility] AND THEY DID NOT HAVE PT.ON SERVICE WITH THEM. ATTMEPTED TO CALL PT.S TO DISCUSS HOSPICE AGENCY THEY WOULD LIKE TO USE. NO RETURN CALL AND CM DID NOT SEE HIM HERE TODAY. WILL ATTMEPT TOMORROW.
[2019-09-05 20:40] VITALS: BP 116/94
--- NOTE | 2019-09-06 06:14 | NUR ---
Oriented x 2-3 and drowsy. She has been incontinent of bowel and bladder this shift. She had IV morphine for pain x 2 and IV lorazepam to sleep at bedtime. Vitals are stable,roomair sat 97%. She has slept well.
[2019-09-06 07:50] VITALS: BP 104/69
--- NOTE | 2019-09-06 08:18 | NUR ---
PATIENT A/O X 4 THIS AM, MORE AWAKE THAN PREVIOUS SHIFTS. PATIENT STATES PAIN CONTROLLED THIS AM. PATIENT INCONTINENT OF LARGE BM THIS MORNING. PATIENT'S VITALS STABLE. PATIENT'S PORT A CATH PATENT AND IVF INFUSING ORDERED. PATIENT'S MOM AT BEDSIDE. PATIENT'S APPETITE IMPROVED, ABLE TO EAT ABOUT 40% OF BREAKFAST. FALL PRECAUTIONS IN PLACE. CALL LIGHT WITHIN REACH. WILL CONTINUE WITH PLAN OF CARE.
[2019-09-06 16:00] VITALS: BP 103/66
--- NOTE | 2019-09-06 18:51 | NUR ---
PATIENT HAS BEEN A/O X 4 THIS SHIFT, MORE AWAKE AND ALERT THAN PREVIOUS SHIFT. MEDICATED FOR ABDOMINAL PAIN X 2 THIS SHIFT WITH GOOD EFFECT. PATIENT UP TO BSC THIS SHIFT, HAVING BMS. PATIENT IVF INFUSING ORDERED. APPETITE IMPROVED THAN PREVIOUS SHIFT. IN GOOD SPIRITS. FAMILY REMAINS AT BEDSIDE. FALL PRECAUTIONS IN PLACE. CALL LIGHT WITHIN REACH. WILL CONTINUE WITH PLAN OF CARE.
[2019-09-06 21:20] VITALS: BP 99/62
--- NOTE | 2019-09-07 06:14 | NUR ---
PT A&O X 4. FLUID RUNNING ORDERED. ATIVAN GIVEN X 1 PER PT REQUEST. PAIN MANAGED WITH IV MORPHINE. UP TO BSC WITH STANDBY ASSIST. PT'S MOM REPORTED PT HAD SOLID BM THIS SHIFT. NO C/O NAUSEA OR VOMITING. PT MOM AT BEDSIDE. WILL CONTINUE TO MONITOR.
[2019-09-07 08:09] VITALS: BP 103/68
[2019-09-07] MEDS ORDERED: MIRALAX17 GM PO (08:30)
[2019-09-07] MEDS ORDERED: REGLAN 10 MG TA10 MG PO (08:30)
[2019-09-07 11:44] VITALS: BP 103/68
--- NOTE | 2019-09-07 12:40 | NUR ---
PATIENT & DENY HAVING HH OR PALLIATIVE CARE PRIOR. SPOKE WITH [facility] & FAXED H&P, DISCHARGE SUMMARY & FACE SHEET. SPOKE WITH [facility]-FAXED H&P, DISCHARGE SUMMARY & FACE SHEET. PATIENT & MOTHER AGREEABLE TO PLAN. UPDATED WELL.
--- NOTE | 2019-09-07 13:26 | NUR ---
PT DISCHARGED TO HOME WITH HOME HEALTH AND PALLIATIVE CARE AT 1325 BY WHEELCHAIR WITH MOTHER AND FATHER. PORT DEACCESSED. PAIN CONTROLLED. NAUSEA CONTROLLED. PERSONAL BELONGINGS SENT WITH PT. PRESCRIPTIONS E FAXED BY
== END 2019-09-07 13:55 | disposition home health service (06) | DRG 388 ==
LOC: M.ERS 05:16 → M.TBA-ER 09:06 → M.ORTHSURG 09:06
PROVIDERS: Emergency Medicine Emergency Medical Services; Family Medicine; Surgery; ADMIT Internal Medicine
PROC: 0DH67UZ Insertion of Feeding Device into Stomach, Via Natural or Artificial Opening (ICD-10-PCS; principal; 2019-08-27)
DX: K56.600 Partial intestinal obstruction, unspecified as to cause (principal); E43 Unspecified severe protein-calorie malnutrition; R65.10 Systemic inflammatory response syndrome (SIRS) of non-infectious origin without acute organ dysfunction; C25.9 Malignant neoplasm of pancreas, unspecified; E87.0 Hyperosmolality and hypernatremia; F17.210 Nicotine dependence, cigarettes, uncomplicated; E86.9 Volume depletion, unspecified; E86.0 Dehydration; E87.6 Hypokalemia; E83.42 Hypomagnesemia; G89.3 Neoplasm related pain (acute) (chronic); E83.39 Other disorders of phosphorus metabolism; K59.03 Drug induced constipation; T40.2X5A Adverse effect of other opioids, initial encounter; Y92.89 Other specified places as the place of occurrence of the external cause; Z90.710 Acquired absence of both cervix and uterus; Z45.2 Encounter for adjustment and management of vascular access device; Z79.891 Long term (current) use of opiate analgesic; Z79.899 Other long term (current) drug therapy; Z88.0 Allergy status to penicillin; Z88.2 Allergy status to sulfonamides; Z88.8 Allergy status to other drugs, medicaments and biological substances

== ENCOUNTER 2019-09-20 20:11 | Inpatient (IN) | payer OTHER ==
[~2019-09-20] VITALS: Ht 154.9 cm; Wt 54.9 kg
--- NOTE | ~2019-09-20 | OP ---
[address] [address] OPERATIVE REPORT Name: IRASEMA BARTON Room: [address] IN M.R.#: [id number] Admission: 09/21/19 Attend Phys: Carrie Chavis MD Discharge: Date of : 80 Report #: [id number] THIS REPORT FOR: //name// cc: Mikey Campbell MD, Ravindra R. MD ~ THIS REPORT FOR: //name// CC: Carrie Campbell MD DATE OF SERVICE: 09/23/2019 PREOPERATIVE DIAGNOSES: Pancreatic cancer and small-bowel obstruction. POSTOPERATIVE DIAGNOSES: Pancreatic cancer and small-bowel obstruction with intra-abdominal adhesions. PROCEDURE: Diagnostic laparoscopy converted to exploratory laparotomy with lysis of adhesions, small bowel resection and placement of gastrostomy tube. SURGEON: Ronald Hubbard DO RECOVERER: Lauren Carty DO, PGY5, Resident. SECOND NUTRITION INSTRUCTOR: Dr. Kodak Spencer junior, MS3. ANESTHESIA: General endotracheal. ESTIMATED BLOOD LOSS: 200 mL. COMPLICATIONS: None. INDICATIONS FOR PROCEDURE: The patient is a 39-year-old female who was diagnosed with a stage 4 pancreatic cancer. She has been admitted multiple times with complaints of small-bowel obstruction. There was some concern as to whether this obstruction was related to her cancer or intra-abdominal adhesions from previous abdominal surgeries. We did discuss with the patient and her mother that we may not be able to fix the entire problem because of her diagnosis of pancreatic cancer and we had discussed placement of a gastric tube for decompression of her stomach for palliation as well. DESCRIPTION OF PROCEDURE: After obtaining proper consents and discussing risks and complications with the patient, she was taken to the operating room, laid in the supine position, administered general anesthesia. [place] [address] OPERATIVE REPORT Name: IRASEMA BARTON Room: [address] IN [facility]#: [id number] Admission: 09/21/19 Attend Phys: Carrie Chavis MD Discharge: Date of : 80 Report #: [id number] draped in the usual fashion including placement of a Pike catheter. A timeout was performed. We confirmed the appropriate patient and procedure. Preoperative antibiotics had been given. SCDs were in place. We then made a small supraumbilical skin incision with a #11 scalpel blade. This was carried down through the skin into the subcutaneous tissue using electrocautery for hemostasis. Once the fascia was encountered, it was grasped and elevated with Damaris clamps. The peritoneum was then grasped and elevated with hemostats and sharply opened using Metzenbaum scissors. We then were able to visualize into the peritoneal cavity. We then placed 2-0 Vicryl sutures in a [id number] fashion to secure the Angeles trocar, which was then inserted and insufflation was begun. Once insufflation was complete, full visual inspection of the anterior abdominal organs was attempted. This revealed a moderate amount of ascites. There was noted to be some adhesions along the midline. These appeared to be very dense adhesions, which also appeared quite vascular and dilated vessels associated with this going into the abdominal wall. These appeared to extend from below the umbilicus all the way down into the pelvis. There did appear to be dilated small bowel proximal to this. At this point, I placed another 5 mm trocar in the patient's right lower quadrant. I then used a laparoscopic Harrison clamp and just gently brushed the adhesion with the backside of the instrument and immediately this area started bleeding. I then tried to move some of these adhesions around and finding that they were far too dense to try to take down laparoscopically. I elected to convert to an open procedure also because of the bleeding from just light touching of the small bowel. So at this point, we removed the laparoscope and all of the laparoscopic instruments. I then extended the incision around the umbilicus extending down inferiorly. I opened the subcutaneous tissues and fascia for the entire length of the incision. I then was able to place a finger within the peritoneal cavity and I opened the peritoneum. I then grasped and elevated the fascia using blunt and sharp dissection. I was able to dissect the small bowel away from the incision all the way down for the entire length of the incision. There did appear to be a serosal injury and an enterotomy in this area that was densely adherent to the abdominal wall. I immediately closed the enterotomy using a 2-0 Vicryl suture. Once the entire area was freed, we were able to place a Savanah retractor and then I ran the small bowel. There were multiple small bowel adhesions low down in the pelvis, which were taken down. There was a moderate amount of bleeding. While I was doing this, there was some clotting blood in the pelvis. Once I was able to free up the small bowel, which was adherent into the pelvis, which took approximately 30-45 minutes of lysing adhesions, I was then able to bring the small bowel up out of the pelvis and then we packed the pelvis with laparotomy sponges to prevent any further bleeding. I then again ran the small bowel and took down adhesions for another 30 minutes or so until I was able to identify this area, which included the area of enterotomy where there were multiple adhesions causing a near complete bowel obstruction. At this point, we elected to resect this area. The patient was also somewhat unstable during surgery and hypotensive and required transfusion of packed red blood cells as well as albumin during the operation, [place] [address] OPERATIVE REPORT Name: IRASEMA BARTON SARAY Room: [address] IN [facility].#: [id number] Admission: 09/21/19 Attend Phys: Carrie Chavis MD Discharge: Date of : 80 Report #: [id number] managing. We elected to do a small bowel resection. I opened an avascular window in the mesentery of the small bowel and then placed a ANNA-75 across the proximal small bowel. I then did the same and distally opening an avascular window in the mesentery and then dividing the bowel using a ANNA-80 mm stapler. We then used a LigaSure impact device to sequentially clamp and divide the mesentery until the entire specimen was able to be removed. Once the specimen was passed off, we then closed the mesenteric defect using a running 2-0 Vicryl suture. We then performed a [id number] anastomosis by opening enterotomy on the proximal and distal ends and then inserting a ANNA stapler firing it and then we checked the common staple line and assured there was no bleeding from this. We then closed the larger enterotomy with TA 60 stapler. We then placed two crotch sutures using 2-0 Vicryl suture. We then explored the abdomen further. The liver appeared to be smooth, I felt no masses. There did not appear to be evidence of any metastatic disease in the mesentery or the peritoneum. I was able to palpate a very firm mass just behind the pylorus, which appeared to be the head of the pancreas. At this point, we attempted to place a gastrojejunostomy tube. I opened the jejunostomy tube and it was brought in through the abdominal wall. A small hole was made in the anterior wall of the stomach after placing a pursestring suture with 2-0 silk. I was then attempted to pass the jejunal feeding tube through the pylorus and after numerous attempts, I was unable to get this to pass, it just curled back. We tried numerous different maneuvers to attempt to pass this taking approximately another 30-40 minutes just trying to get this through and eventually we elected to not place the gastrojejunostomy tube and just use a gastric tube as I suspect that there was an outlet obstruction secondary to the pancreatic mass, so we just placed a gastric tube. I tied the pursestring suture. We then secured the stomach to the anterior abdominal wall using 2-0 Vicryl suture. At this point, we then copiously irrigated the abdomen. We assured hemostasis. There was no evidence of any bleeding at this point. The anastomosis was checked again. We then placed the omentum down over the small bowel where it had been resected and then closed the abdominal wall using a running #1 looped PDS suture to close the peritoneum and fascia. We then closed the subcutaneous tissue using 3-0 Vicryl suture. Skin incision was closed using candie. Sterile dressing was placed. Sponge, needle and instrument counts were all correct at the end of the procedure. By: [id number] Marion Hubbard DO /nt
[~2019-09-20 20:11] MED LIST changes: +MIRALAX17 GM PO; +REGLAN 10 MG TA10 MG PO
[2019-09-20 20:22] VITALS: BP 116/81
[2019-09-20 21:31] LABS: ABSOLUTE LYMPHOCYTES 1.4 thou/uL (0.8-5.3); ABSOLUTE NEUTROPHILS 4.6 thou/uL (1.6-8.1); BASOPHILS 0.2 %; EOSINOPHILS 0.1 %; HEMATOCRIT 29.6 % (37.0-47.0); LYMPHOCYTES 20.1 %; MCH 31.7 pg (26.0-34.0); MCHC 33.7 g/dL (28.0-37.0); MCV 94.2 fL (80.0-100.0); MONOCYTES 13.8 %; MPV 7.7 fl. (7.2-11.1); NUCLEATED RBCS 0 /100WBC; PLATELET COUNT* 411 thou/uL (150-400); POLYS 65.8 %; RBC 3.15 mil/uL (4.20-5.00); RDW-CV 18.4 % (10.5-14.5)
[2019-09-20 21:40] LABS: CALCIUM 7.8 mg/dL (8.5-10.1); CREATININE 0.5 mg/dL (0.6-1.3)
[2019-09-20 21:44] LABS: ALBUMIN 1.9 g/dL (3.4-5.0); TOTAL BILIRUBIN 0.8 mg/dL (<0.1-1.0)
[2019-09-20 22:02] LABS: INFLUENZA A ANTIGEN Negative (Negative); INFLUENZA B ANTIGEN Negative (Negative)
[2019-09-21 02:15] VITALS: BP 103/72
[2019-09-21 02:30] VITALS: BP 98/70
[2019-09-21 06:00] LABS: HEMATOCRIT 25.6 % (37.0-47.0); HEMOGLOBIN 8.5 gm/dL (12.0-15.0); MCH 31.7 pg (26.0-34.0); MCHC 33.2 g/dL (28.0-37.0); MCV 95.4 fL (80.0-100.0); MPV 7.8 fl. (7.2-11.1); RBC 2.69 mil/uL (4.20-5.00); RDW-CV 18.9 % (10.5-14.5); WBC 6.5 thou/uL (4.0-11.0)
[2019-09-21 06:25] LABS: ALBUMIN 1.6 g/dL (3.4-5.0); CALCIUM 7.4 mg/dL (8.5-10.1); CREATININE 0.4 mg/dL (0.6-1.3); MAGNESIUM 1.4 mg/dL (1.8-2.4); PHOSPHORUS* 3.9 mg/dL (2.5-4.9); TOTAL BILIRUBIN 0.6 mg/dL (<0.1-1.0); TOTAL PROTEIN 5.3 g/dL (6.4-8.2)
[2019-09-21 07:20] VITALS: BP 104/69
[2019-09-21 15:54] VITALS: BP 102/62
[2019-09-21 20:00] VITALS: BP 106/63
[2019-09-22 04:53] LABS: CALCIUM 6.8 mg/dL (8.5-10.1); CREATININE 0.4 mg/dL (0.6-1.3); POTASSIUM 3.4 mmol/L (3.5-5.1)
[2019-09-22 05:02] LABS: PHOSPHORUS* 3.3 mg/dL (2.5-4.9)
[2019-09-22 05:28] LABS: ABSOLUTE LYMPHOCYTES 1.3 thou/uL (0.8-5.3); ABSOLUTE MONOCYTES 0.7 thou/uL (0.0-1.2); ABSOLUTE NEUTROPHILS 2.7 thou/uL (1.6-8.1); BASOPHILS 0.4 %; EOSINOPHILS 0.2 %; LYMPHOCYTES 26.9 %; MCHC 34.7 g/dL (28.0-37.0); MCV 95.1 fL (80.0-100.0); MONOCYTES 15.1 %; MPV 7.3 fl. (7.2-11.1); NUCLEATED RBCS 0 /100WBC; PLATELET COUNT* 350 thou/uL (150-400); POLYS 57.4 %; RBC 2.42 mil/uL (4.20-5.00); RDW-CV 18.4 % (10.5-14.5); WBC 4.7 thou/uL (4.0-11.0)
[2019-09-22 07:20] VITALS: BP 90/58
[2019-09-22 23:32] VITALS: BP 110/74
[2019-09-23] VITALS (7 sets, daily range): BP systolic 109–118; BP diastolic 74–85
[2019-09-23 03:57] LABS: ABSOLUTE LYMPHOCYTES 1.7 thou/uL (0.8-5.3); ABSOLUTE MONOCYTES 0.7 thou/uL (0.0-1.2); ABSOLUTE NEUTROPHILS 4.5 thou/uL (1.6-8.1); BASOPHILS 0.2 %; HEMATOCRIT 23.4 % (37.0-47.0); HEMOGLOBIN 7.7 gm/dL (12.0-15.0); LYMPHOCYTES 23.9 %; MCH 31.8 pg (26.0-34.0); MCV 96.4 fL (80.0-100.0); MONOCYTES 10.7 %; MPV 7.5 fl. (7.2-11.1); NUCLEATED RBCS 0 /100WBC; PLATELET COUNT* 382 thou/uL (150-400); POLYS 65.2 %; RBC 2.43 mil/uL (4.20-5.00); RDW-CV 19.3 % (10.5-14.5)
[2019-09-23 04:08] LABS: ALBUMIN 1.3 g/dL (3.4-5.0); CALCIUM 6.9 mg/dL (8.5-10.1); CREATININE 0.4 mg/dL (0.6-1.3); POTASSIUM 3.4 mmol/L (3.5-5.1); TOTAL BILIRUBIN 0.5 mg/dL (<0.1-1.0); TOTAL PROTEIN 4.5 g/dL (6.4-8.2)
[2019-09-23 09:09] LABS: HEMATOCRIT 23.7 % (37.0-47.0); HEMOGLOBIN 7.9 gm/dL (12.0-15.0); MCH 31.8 pg (26.0-34.0); MCHC 33.5 g/dL (28.0-37.0); MCV 94.8 fL (80.0-100.0); MPV 7.3 fl. (7.2-11.1); RBC 2.49 mil/uL (4.20-5.00); RDW-CV 18.7 % (10.5-14.5); WBC 7.2 thou/uL (4.0-11.0)
[2019-09-23 09:25] LABS: APTT 37.2 Seconds (25.0-31.3); INR 1.9; PROTIME 19.3 Seconds (9.20-11.50)
[2019-09-23 17:16] LABS: HEMOGLOBIN 7.9 gm/dL (12.0-15.0)
[2019-09-24] VITALS (11 sets, daily range): BP systolic 93–124; BP diastolic 57–80
[2019-09-24 05:09] LABS: ABSOLUTE LYMPHOCYTES 1.9 thou/uL (0.8-5.3); ABSOLUTE MONOCYTES 1.2 thou/uL (0.0-1.2); ABSOLUTE NEUTROPHILS 8.7 thou/uL (1.6-8.1); BASOPHILS 0.1 %; HEMATOCRIT 20.8 % (37.0-47.0); LYMPHOCYTES 15.7 %; MCH 31.3 pg (26.0-34.0); MCHC 33.5 g/dL (28.0-37.0); MCV 93.2 fL (80.0-100.0); MONOCYTES 10.5 %; MPV 7.5 fl. (7.2-11.1); NUCLEATED RBCS 0 /100WBC; PLATELET COUNT* 323 thou/uL (150-400); POLYS 73.7 %; RBC 2.23 mil/uL (4.20-5.00); RDW-CV 17.9 % (10.5-14.5); WBC 11.9 thou/uL (4.0-11.0)
[2019-09-24 05:52] LABS: ALBUMIN 1.7 g/dL (3.4-5.0); CALCIUM 7.1 mg/dL (8.5-10.1); CREATININE 0.3 mg/dL (0.6-1.3); POTASSIUM 3.6 mmol/L (3.5-5.1); TOTAL BILIRUBIN 0.6 mg/dL (<0.1-1.0); TOTAL PROTEIN 4.3 g/dL (6.4-8.2)
[2019-09-25 07:40] VITALS: BP 108/80
[2019-09-25] MEDS ORDERED: DURAGESIC1 EAC3 TRANSDERM (14:05)
--- NOTE | 2019-09-25 18:06 | PATH ---
[address] [address] PATHOLOGY RPT PROCEDURE Name: IRASEMA AREVALO SARAY Room: [address] IN M.R.#: [id number] Admission: 09/21/19 Date of : 80 Discharge: Report #: [id number] Path Case #: [id number] [facility] Accession Number: [id number] . 01 Material submitted: . small bowel - SMALL BOWEL . 01 Clinical history: . Bowel obstruction and pancreatic cancer . 02 Diagnosis: Small bowel: - Segment of benign small intestine with discontinuous prominent chronic and active inflammation including ulcerations, transmural inflammation, serosal fibrosis and extensive serosal adhesions, negative for granulomas, viral inclusions and dysplasia. See comment. (ROMAINE:jose antonio; 09/25/2019) MBR 09/25/2019 1555 Local . 02 Comment: Review of Dr. Raul Riddle/Turner Richardson's history and physical dated 09/21/2019 reveals the patient to have had chemotherapy approximately 1 month prior for known pancreatic cancer. The gross and histologic findings show chronic and active inflammation, present in a discontinuous fashion and raises a question of Crohn's disease. Ischemic features are not apparent. (ROMAINE:jose antonio; 09/25/2019) . 02 Electronically signed: . Lazaro Nash MD, Pathologist NPI- [id number] . 01 Gross description: . The specimen is received in formalin, labeled "Irasema Arevalo, small bowel" and consists of an unoriented segment of small bowel measuring approximately 65 cm in length and up to 3.5 cm in diameter. Both margins have a staple line. There are 2 separate back to back wall adhesions. The serosa is pink-barney to purple and there is mesenteric fat measuring up to 4.2 cm. Opening reveals a lumen filled with soft green material. The mucosa is pink-green to purple-red with no masses. Adjacent to one glxu-lc-auht adhesion, the mucosa has a cobblestone purple barney appearance. No additional gross lesions are identified. [address] sections are submitted as follows: . A1-A2: Margins A3-A4: One uvzo-bx-zaax adhesion A5: Second mthz-yl-vnby adhesion A6: [place] [address] PATHOLOGY RPT PROCEDURE Name: IRASEMA AREVALO Room: [address] IN M.R.#: [id number] Admission: 09/21/19 Date of : 80 Discharge: Report #: [id number] Path Case #: [id number] (SDY; 09/24/2019) SYU/SYU 09/25/2019 1549 Local . 02 Pathologist provided ICD-10: K63.3, K52.9, K66.0 . 02 CPT . 413667 Specimen Comment: A courtesy copy of this report has been sent to [phone] Specimen Comment: [phone], Specimen Comment: Report sent to ,DR HICKEY / DR BOURNE Performed at: [address], [place] [id number] MD Bear Jung MD Phone: [phone] Performed at: [facility] [address], [place], [place] [id number] MD Lazaro Nash MD Phone: [phone]
== END 2019-09-25 19:24 | disposition hospice, home (50) | DRG 329 ==
LOC: M.ERS 20:11 → M.ORTHSURG 09-21 01:32 → M.TBA-ER 09-21 01:32 → M.3W 09-21 01:32 → M.ICU 09-23 16:01 → M.ORTHSURG 09-24 16:55
PROVIDERS: Internal Medicine; Personal Emergency Response Attendant; Surgery; ADMIT Internal Medicine
PROC: 0D9670Z Drainage of Stomach with Drainage Device, Via Natural or Artificial Opening (ICD-10-PCS; principal; 2019-09-21)
PROC: 0DH63UZ Insertion of Feeding Device into Stomach, Percutaneous Approach (ICD-10-PCS; 2019-09-23)
PROC: 0DT80ZZ Resection of Small Intestine, Open Approach (ICD-10-PCS; 2019-09-23)
PROC: 0DN80ZZ Release Small Intestine, Open Approach (ICD-10-PCS; 2019-09-23)
DX: K56.609 Unspecified intestinal obstruction, unspecified as to partial versus complete obstruction (principal); E43 Unspecified severe protein-calorie malnutrition; C25.9 Malignant neoplasm of pancreas, unspecified; A04.9 Bacterial intestinal infection, unspecified; D64.9 Anemia, unspecified; K66.0 Peritoneal adhesions (postprocedural) (postinfection); K04.7 Periapical abscess without sinus; D63.8 Anemia in other chronic diseases classified elsewhere; E83.51 Hypocalcemia; R00.0 Tachycardia, unspecified; E83.42 Hypomagnesemia; E87.6 Hypokalemia; Z66 Do not resuscitate; Z68.22 Body mass index [BMI] 22.0-22.9, adult; Z90.710 Acquired absence of both cervix and uterus; Z79.891 Long term (current) use of opiate analgesic; Z79.899 Other long term (current) drug therapy; Z88.0 Allergy status to penicillin; Z88.2 Allergy status to sulfonamides